=== PATIENT | female | born 1990 | race Caucasian/White ===

== ENCOUNTER 2016-05-13 11:41 | Emergency (ER) | payer BC, OTHER ==
[~2016-05-13] VITALS: Ht 160 cm; Wt 56.4 kg
[2016-05-13 11:46] VITALS: TEMP 36.5; Ht 160 cm; Wt 56.4 kg
[2016-05-13] MEDS ORDERED: ONDANSETRON INJ 2 MG/ML 2 ML VIAL IV STA (12:22)
[2016-05-13] MEDS ORDERED: SODIUM CHLORIDE 0.9% 1000ML 1,000 ML IV ONE ×2 (12:30→13:15)
[2016-05-13 12:32] LABS: HEMATOCRIT 40.8 % (37-47); MEAN CORPUSCULAR HEMOGLOBIN 27.2 pg (25-34); MEAN CORPUSCULAR HGB CONC 33.6 g/dl (32-36); MEAN PLATELET VOLUME 11.2 fL (7.4-10.4); PLATELET COUNT 219 K/uL (130-400); RED BLOOD COUNT 5.04 M/uL (4.2-5.4); WHITE BLOOD COUNT 7.99 K/uL (4.8-10.8)
[2016-05-13] MEDS ORDERED: ONDA4TAB46 PO (12:35)
[2016-05-13] MEDS ORDERED: LXT PO (12:36)
[2016-05-13] MEDS ORDERED: TRAM-10 PO (12:36)
[2016-05-13 12:39] LABS: CALCIUM 9.3 mg/dl (8.5-10.1); CREATININE 0.9 mg/dl (0.60-1.20); POTASSIUM 3.4 mmol/L (3.5-5.1)
[2016-05-13 12:42] LABS: ALB/GLOB RATIO 1.3 (0.9-2)
[2016-05-13] MEDS ORDERED: TRAMADOL HCL 50 MG TAB PO STA (12:43)
--- NOTE | 2016-05-13 12:43 | EMERGENCY ROOM VISIT NOTE ---
History First contact with patient: 11:58 Chief Complaint: VOMITING Stated Complaint: NON STOP VOMITING, STOMACH PAINS Nursing Triage Summary: Triage note: Pt reports nausea, vomiting since approx 0930 today. pt reports hx of crohns. History of Present Illness The patient is a 25 year old female who presents to the Emergency Room with complaints of intractable nausea. She did well overnight. This morning, at 9:30 she began having intractable emesis. She contents with cheese curd-like without blood. She tried taking her Zofran and Tramadol with morning at 10:30 but threw them up so decided to come to the ED for further evaluation. She is noted to have a diagnosis of Crohn's disease. Her diagnosis of Crohns was made in July 2015. She notes that her symptoms are primarily upper GI with vomiting. She has had endoscopy, but cannot recall the specific result. She notes disease was found in the ileum. She does not recall results of colonoscopy. She notes this has been an ongoing issue since she was 4 years old. She has chronic nausea and vomiting and has presented several visits to the ED for nausea and vomiting. She was usually treated supportively. At home, she normally takes Zofran every 4-6 hours daily. She also takes Tramadol for chronic LLQ pain. She note daily cannabis use. She was told by a carrot tier in [place] many years ago that marijuana would help with her symptoms. She states she smokes 1 gram per day. She states that when she can make it to the shower, it does seem to help her symptoms. She states it helps her with her LLQ pain related to her Crohns, even more than Tramadol.. She has been smoking for many years and also notes that her nausea preceded her starting smoking marijuana. She has been advised by her carrot tier to stop smoking, but she finds the pain relief too helpful. Review of Systems A 10 point review of systems was negative unless stated above. Past Medical/Surgical History Medical Problems: (1) Marijuana abuse (2) Nausea With Vomiting, Unspecified Surgical Problems: (1) No significant past surgical history Crohn's Disease Family History Cancer Social History Smoking Status: Never Smoker Alcohol Use: none Drug Use: marijuana (1 g per day) Marital Status: single Housing Status: lives with significant other Occupation Status: employed Current/Historical Medications Scheduled PRN Laxative (Laxative), Unknown Dose PO DAILY PRN for Constipation Ondansetron Hcl (Zofran), 4 MG PO DAILY PRN for Nausea Tramadol (Ultram), 50 MG PO DAILY PRN for Pain Allergies Coded Allergies: No Known Allergies (Unverified , 05/13/16) Physical Exam Vital Signs Date Time Temp Pulse Resp B/P Pulse Ox O2 Delivery O2 Flow Rate FiO2 05/13/16 14:51 79 16 104/64 100 Room Air 05/13/16 13:56 67 19 105/61 99 Room Air 05/13/16 13:00 69 14 99/57 98 Room Air 05/13/16 12:07 69 05/13/16 11:46 36.5 70 18 144/78 99 Room Air Physical Exam Constitutional: Vital signs as above were reviewed. Eyes: Pupils equal, round, and reactive to light. Extraocular muscles are intact. No proptosis. No photophobia. ENT: Mucous membranes are moist. Oropharynx is clear. No sinus tenderness. TMs are clear bilaterally. Cardiovascular: Heart with a regular rate and rhythm. Pulses are palpable and symmetric in all 4 extremities. No pedal edema appreciated. Respiratory: Lungs clear to auscultation bilaterally. No wheezes, rales, or rhonchi appreciated. No accessory muscle use. No retractions. No increased work of breathing. GI: Abdomen soft, nontender, nondistended. Normal active bowel sounds. No abdominal hernias appreciated. No rebound. No guarding. : No CVA tenderness appreciated. Musculoskeletal: No midline cervical or vertebral tenderness. No gross deformities. No bony tenderness. No calf swelling or tenderness. Integumentary: Warm, dry, no rashes appreciated. Neurological: Patient awake, alert, and oriented x 3. Cranial nerves two through 12 grossly intact. Motor 5 out of 5 strength bilateral upper and lower extremities. Lymph: No cervical lymphadenopathy appreciated. Medical Decision & Procedures Laboratory Results 05/13/16 12:00 05/13/16 12:00 Test 05/13/16 12:00 Red Blood Count 5.04 M/uL (4.2-5.4) Mean Corpuscular Volume 81.0 fL (80-100) Mean Corpuscular Hemoglobin 27.2 pg (25-34) Mean Corpuscular Hemoglobin Concent 33.6 g/dl (32-36) RDW Standard Deviation 40.7 fL (36.4-46.3) RDW Coefficient of Variation 13.7 % (11.5-14.5) Mean Platelet Volume 11.2 fL (7.4-10.4) Anion Gap 16.0 mmol/L (3-11) Est Creatinine Clear Calc Drug Dose 78.3 ml/min Estimated GFR () 102.3 Estimated GFR (Non- 88.2 BUN/Creatinine Ratio 11.0 (10-20) Calcium Level 9.3 mg/dl (8.5-10.1) Total Bilirubin 0.6 mg/dl (0.2-1) Aspartate Amino Transf (AST/SGOT) 16 U/L (15-37) Alanine Aminotransferase (ALT/SGPT) 17 U/L (12-78) Alkaline Phosphatase 53 U/L (45-117) Total Protein 8.3 gm/dl (6.4-8.2) Albumin 4.7 gm/dl (3.4-5.0) Globulin 3.6 gm/dl (2.5-4.0) Albumin/Globulin Ratio 1.3 (0.9-2) Medications Administered Medications (Trade) Dose Ordered Sig/Aubree Route Start Time Stop Time Status Last Admin Dose Admin Ondansetron HCl 4 mg 4 mg NOW STAT IV 05/13/16 12:22 05/13/16 12:27 DC 05/13/16 12:35 4 MG Sodium Chloride (Nss 1000ml) 1,000 ml @ 999 mls/hr Q1H1M ONCE IV 05/13/16 12:30 05/13/16 13:30 DC 05/13/16 12:35 999 MLS/HR Tramadol HCl 50 mg 50 mg NOW STAT PO 05/13/16 12:43 05/13/16 12:44 DC 05/13/16 13:01 50 MG Sodium Chloride (Nss 1000ml) 1,000 ml @ 999 mls/hr Q1H1M ONCE IV 05/13/16 13:15 05/13/16 14:15 DC 05/13/16 13:15 999 MLS/HR ED Course 12:00 - Patient seen and evaluated Orders for CBC, BMP, Zofran 4 mg IV and 1 LNSS 13:00 - Case precepted with Dr. Lucio Second 1 L NS ordered 13:30 - Labs reviewed; CBC WNL; BMP grossly normal 14:40 - Re-assessed by myself and Dr. Lucio Nausea resolved; patient tolerating PO fluids 14:50 - Patient discharged in stable condition. Patient has Zofran prescription already waiting at pharmacy. No meds given at discharge. Medical Decision This is a 25 year old female who presents with intractable nausea and vomiting. She has a background of Crohn's and notes that her symptoms have always been nausea/vomiting, since she was a child. A thorough history was obtained, physical examination performed and the EMR was reviewed. The case was reviewed multiple times over with Dr. Karel Lucio during the patient's ED visit. Based on history, it is unclear whether the etiology of her nausea is related to her Crohn's vs chronic overuse of marijuana. She does note 1 g daily use, so I do suspect cannabinoid hyperemesis syndrome as well. This has been brought up with her by her carrot tier. This is unfortunately complicated by the fact that marijuana helps her pain even more than Toradol. We treated with 2 L of NSS. She was treated with 1 dose of IV Zofran which resolved symptoms. She was tolerating PO well prior to discharge. At this point, she needs follow-up gastroenterology to determine next steps for therapy. She is currently not on any immunosuppressants and would benefit from a discussion of immunosuppressives that may help sherry her abdominal pain. She was discharged in stable condition and will make arrangements through her PCP to follow-up with her carrot tier. Impression Primary Impression: Vomiting Additional Impressions: Crohn disease Cannabinoid hyperemesis syndrome Departure Information Dispostion Home / Self-Care Condition GOOD Referrals Mary Ramos,DO (PCP) Patient Instructions My [facility] Additional Instructions You came to the ED for intractable nausea and vomiting. You did note to us this is unfortunately an ongoing issue related to your Crohn' s disease. We treated you with medicine for nausea and IV fluids. You were able to drink without feeling nauseated so we feel that you can safely be discharged. You did mention that you are looking for follow-up with a gastro-enterologist. [facility] and your primary provider Dr. Mary Ramos can help facilitate getting you see one that can follow along with you long-term. Seeing a GI specialist will allow to have a discussion on various treatment options to help control your symptoms long-term. You did note that you have a standing prescription for Zofran waiting for your at the pharmacy. Please take this as needed for nausea. Gradually advance your diet. Start with liquids and move progressively to more solid foods until you tolerate your usual diet. If your symptoms fail to improve, acutely worsen, please seek medical attention immediately by either calling your primary care provider or going to your nearest emergency department. Otherwise, please see your primary care provider in 3-5 days to ensure that your symptoms continue to improve. It was a pleasure to be involved in your care and we wish you all the best. Problem Qualifiers
[2016-05-13 14:51] VITALS: BP 104/64; PULSE 79; O2SAT 100
--- NOTE | 2016-05-13 14:52 | EMERGENCY ROOM VISIT NOTE ---
ED Visit Note First contact with patient: 11:58 Resident Physician Supervision Note: I was present with Dr. De Dios during the history and exam. I discussed the case with the resident and agree with the findings and plan as documented in the note. Any exceptions or clarifications are listed here: [None] Documented By: Karel Lucio
== END 2016-05-13 15:03 | disposition home or self-care (01) ==
LOC: C.EDB 11:42 → C.EDA 15:03
DX: R11.10 Vomiting, unspecified (principal); K50.90 Crohn's disease, unspecified, without complications; F12.10 Cannabis abuse, uncomplicated

== ENCOUNTER 2022-08-13 16:12 | Inpatient (IN) ==
[2022-08-13] MEDS ORDERED: SODIUM CHLORIDE 0.9% 500 ML IV ONE (16:24)
--- NOTE | 2022-08-13 16:25 | Emergency Department Note ---
Impression & Plan Spontaneous miscarriage ADMIT ED Provider Note HPI: The patient is a 31-year-old female with history of Crohn disease, presents emergency department with a chief complaint of left lower abdominal pain and vomiting. Patient states she is currently 14 weeks . States that her symptoms seem to worsen throughout the day today. Patient states that earlier today she had an episode where she felt as if she cannot control her urine. Patient also states that she noticed "drops" of bleeding from her vagina earlier today. Patient denies any chest pain or shortness of breath, on arrival here to the ED the patient is hemodynamically stable, she is saturating well on room air, she is in no acute distress on my initial assessment. States she does feel nausea and some left lower quadrant pain on arrival. Patient states she follows with [facility], states that she had an ultrasound done at 7 weeks that showed intrauterine . ROS: - Per HPI *Outpatient medications and allergy history reviewed. *Pertinent external medical records reviewed. PE: General: Alert HEENT: Normocephalic, trachea midline Eyes: Extraocular eye movement is intact, no scleral erythema Pulmonary: Clear to auscultation bilaterally, no wheezing Cardio: Regular rate and rhythm GI: Abdomen is soft to palpation : Mild suprapubic tenderness without any guarding or rigidity MSK: No evidence of trauma or malformation of the extremities, no edema Skin: No evidence of rash Neuro: Alert, no focal deficits Psychiatric: Cooperative trans router: (As interpreted by myself): - An order was placed for continuous cardiac monitoring - Patient was noted to be in sinus rhythm with a rate of 85 Interventions provided in ED: -IV morphine Differential Diagnosis: Ectopic , heterotopic , spontaneous miscarriage, ovarian cyst, ovarian torsion, amongst other potential pathologies. Medical Decision Making: The patient is a 31-year-old female, G1, P1, presents emergency department with a chief complaint of some lower abdominal cramping mostly to the left side. Patient states earlier today she had an episode of urinary incontinence as well. IV was established and lab work obtained, patient was maintained on cream dumper, ultrasound imaging of the pelvis was performed which unfortunately shows an apparent spontaneous miscarriage. Lab work shows leukocytosis of 14.4 which I suspect is reactive in nature, hemoglobin is stable, hCG quant level is 138,820. I did receive a call from the medical technician in regards to the finding on ultrasound of spontaneous miscarriage with fetus unfortunately lowering into the cervix and uterine canal. On my reassessment patient was informed of this finding, stated she was having some worsening pain and therefore was given IV morphine for pain. Shortly after this I did contact [facility], case was discussed with Dr. Kapoor. He did evaluate the patient at the bedside and decision was made to transfer the patient to L&D for further management. Patient was informed of all the above findings, she is in agreement to the above plan and she was transferred in stable condition. Consultants: [facility], Dr. Kapoor Disposition discussion held by myself with: Patient Diagnosis: 1. Spontaneous miscarriage 2. Lower abdominal/pelvic pain in the setting of Disposition: Admission to L&D Alvarez Agustin DO Emergency Medicine Past Med/Surg History Medical History (Updated 08/13/22 @ 19:58 by Alvarez Agustin DO) Crohn disease Marijuana abuse Family History Other No pertinent family history in first degree relatives Social History Smoking Status: Never smoker Hx Alcohol Use: No Hx Substance Use: No Preferred Language: Belarusian Communication Ability: Effective Vender Required: No Beliefs That Will Affect Care: None marital status: Current Living Situation: Spouse Current Living Situation Comment: Rick Other Information That Helps Us Care for You: Yes (Pt has dx of Crohns no current tx.) Feels Safe at Home: Yes Assistive Devices: Glasses Allergies Allergies Allergy/AdvReac Type Severity Reaction Status Date / Time No Known Allergies Allergy Verified 01/08/20 17:14 Home Meds Home Medications Medication Instructions Recorded Confirmed vitamins-iron fumarate 65 1 tab PO DAILY 08/13/22 08/13/22 mg iron-folic acid 1 mg tablet Results & Data (ED) Vital Signs Vital Signs - 24 hr 08/13/22 16:15 08/13/22 16:48 08/13/22 17:26 Temperature 36.5 C Temperature Source Temporal Artery Scan Pulse Rate 92 H 74 98 H Pulse Rate [Right Brachial] Pulse Rhythm Regular Pulse Rhythm [Right Brachial] Pulse Strength [Right Brachial] Respiratory Rate 20 19 Respiratory Effort / Characteristics Respiratory Depth Blood Pressure 114/77 Blood Pressure [Right Arm] Blood Pressure Mean 89 Blood Pressure Mean [Right Arm] Blood Pressure Position [Right Arm] Pulse Oximetry 99 99 Oxygen Delivery Method Room Air Room Air Sepsis Recent Fever Within 48 Hours No Sepsis New/Unexplained Change in Mental Status N/A Sepsis Action Taken by Nursing No Action Required 08/13/22 17:56 Temperature Temperature Source Pulse Rate Pulse Rate [Right Brachial] 80 Pulse Rhythm Pulse Rhythm [Right Brachial] Regular Pulse Strength [Right Brachial] Normal Respiratory Rate 19 Respiratory Effort / Characteristics Non-Labored Spontaneous Respiratory Depth Normal Blood Pressure Blood Pressure [Right Arm] 120/66 Blood Pressure Mean Blood Pressure Mean [Right Arm] 84 Blood Pressure Position [Right Arm] Lying Pulse Oximetry 99 Oxygen Delivery Method Room Air Sepsis Recent Fever Within 48 Hours Sepsis New/Unexplained Change in Mental Status Sepsis Action Taken by Nursing Laboratory Data 08/13/22 16:29 08/13/22 16:29 Lab Results 08/13/22 08/13/22 08/13/22 Range/Units 16:29 16:29 16:29 WBC 14.40 H (4.8-10.8) K/ul RBC 4.64 (4.20-5.40) M/uL Hgb 12.5 (12.0-16.0) g/dl Hct 37.3 (37.0-47.0) % MCV 80.4 (80.0-100.0) fL MCH 26.9 (25.0-34.0) pg MCHC 33.5 (32.0-36.0) g/dL RDW Std Deviation 40.3 (36.4-46.3) fL RDW Coeff of Stefan 13.8 (11.5-14.5) % Plt Count 194 (130-400) K/uL MPV 11.6 (9.4-12.4) fL Immature Gran % (Auto) 0.3 % Neut % (Auto) 81.5 % Lymph % (Auto) 12.5 % [place] % (Auto) 5.3 % Eos % (Auto) 0.2 % Baso % (Auto) 0.2 % Neut # (Auto) 11.73 H (1.40-6.50) K/uL Lymph # (Auto) 1.80 (1.2-3.4) K/uL [place] # (Auto) 0.76 H (0.11-0.59) K/uL Eos # (Auto) 0.03 (0-0.50) K/uL Baso # (Auto) 0.03 (0-0.2) K/uL Immature Gran # (Auto) 0.05 (0.01-0.20) K/uL PT (9.0-12.0) Seconds INR (0.9-1.1) Sodium 136 (136-145) mmol/L Potassium 3.3 L (3.5-5.1) mmol/L Chloride 103 (98-107) mmol/L Carbon Dioxide 22 (21-32) mmol/L Anion Gap 11 (3-11) BUN 5 L (6-23) mg/dl Creatinine 0.53 L (0.6-1.2) mg/dl Est Cr Clr Drug Dosing 134.9 ml/min Est GFR ( Amer) 145.6 ml/min Est GFR (Non-Af Amer) 125.6 ml/min BUN/Creatinine Ratio 9.4 L (10-20) Glucose 75 (70-99(Fasting)) mg/dl Calcium 9.1 (8.6-10.3) mg/dl Total Bilirubin 0.3 (0.2-1.0) mg/dl AST 16 (13-39) U/L ALT 14 (7-52) U/L Alkaline Phosphatase 69 (34-104) U/L Total Protein 7.5 (6.0-8.3) gm/dl Albumin 4.0 (3.4-5.0) gm/dl Globulin 3.5 (2.5-4.0) gm/dl Albumin/Globulin Ratio 1.1 (0.9-2) Lipase 7 L (11-82) U/L HCG, Qual Positive (Negative) HCG, Quant mIU/ml Blood Type Antibody Screen 08/13/22 08/13/22 08/13/22 Range/Units 16:29 16:37 17:47 WBC (4.8-10.8) K/ul RBC (4.20-5.40) M/uL Hgb (12.0-16.0) g/dl Hct (37.0-47.0) % MCV (80.0-100.0) fL MCH (25.0-34.0) pg MCHC (32.0-36.0) g/dL RDW Std Deviation (36.4-46.3) fL RDW Coeff of Stefan (11.5-14.5) % Plt Count (130-400) K/uL MPV (9.4-12.4) fL Immature Gran % (Auto) % Neut % (Auto) % Lymph % (Auto) % [place] % (Auto) % Eos % (Auto) % Baso % (Auto) % Neut # (Auto) (1.40-6.50) K/uL Lymph # (Auto) (1.2-3.4) K/uL [place] # (Auto) (0.11-0.59) K/uL Eos # (Auto) (0-0.50) K/uL Baso # (Auto) (0-0.2) K/uL Immature Gran # (Auto) (0.01-0.20) K/uL PT 10.1 (9.0-12.0) Seconds INR 0.9 (0.9-1.1) Sodium (136-145) mmol/L Potassium (3.5-5.1) mmol/L Chloride (98-107) mmol/L Carbon Dioxide (21-32) mmol/L Anion Gap (3-11) BUN (6-23) mg/dl Creatinine (0.6-1.2) mg/dl Est Cr Clr Drug Dosing ml/min Est GFR ( Amer) ml/min Est GFR (Non-Af Amer) ml/min BUN/Creatinine Ratio (10-20) Glucose (70-99(Fasting)) mg/dl Calcium (8.6-10.3) mg/dl Total Bilirubin (0.2-1.0) mg/dl AST (13-39) U/L ALT (7-52) U/L Alkaline Phosphatase (34-104) U/L Total Protein (6.0-8.3) gm/dl Albumin (3.4-5.0) gm/dl Globulin (2.5-4.0) gm/dl Albumin/Globulin Ratio (0.9-2) Lipase (11-82) U/L HCG, Qual (Negative) HCG, Quant 161758 mIU/ml Blood Type A Positive Antibody Screen NEGATIVE Administered Medications Discontinued Medications Sodium Chloride (Nss) 500 mls @ 999 mls/hr IV .Q31M ONE Stop: 08/13/22 16:54 Last Infusion: 08/13/22 17:56 Dose: 0 mls/hr Documented By: Admin: 08/13/22 16:43 Dose: 999 mls/hr Documented By: KACIE Morphine Sulfate (Morphine Sulfate 4 Mg/Ml 1 Ml Carp\\Vial) 4 mg IV NOW STA Stop: 08/13/22 17:26 Last Admin: 08/13/22 17:28 Dose: 4 mg Documented By: KACIE Imaging Data Radiologist's Impression: Obstetrics Ultrasound 08/13/22 16:23 US OB limited CLINICAL HISTORY: Vaginal bleeding, 14 weeks COMPARISON STUDY: None. FINDINGS: Transabdominal scanning of the pelvis was performed with sales representative groceries images submitted. There is a single intrauterine gestation demonstrating a heart rate of 178 BPM. age is approximately 14 weeks and 2 days based on the head circumference. There is oligohydramnios. No evidence for subchorionic hematoma. The lower uterine segment/cervix is not well visualized due to the positioning and oligohydramnios. However, the fetus is actively lowering within the uterine cavity consistent with a spontaneous in progress. IMPRESSION: There is a 14 week and 2 day intrauterine gestation with a heart rate of 178 BPM. There is oligohydramnios with active lowering of the fetus into the lower uterine canal/cervix during scanning. Therefore, this is highly suspicious for a spontaneous in progress. This was discussed with Dr. Agustin at 5:38 PM on 08/13/2022. ACT 112: Negative or not required by law. Electronically signed by: Jace Arnold M.D. 08/13/2022 5:38 PM Discharge Plan Visit Data Chief Complaint: Abdominal Pain Stated Complaint: ABDOMINAL PAIN, CRAMPING - 14 WEEKS ED Provider: Alvarez Agustin Discharge Problem: Spontaneous miscarriage Patient Disposition: Admitted As Inpatient Discharge Instructions Interventions: ED Discharge Assessment Last Done: 08/13/22 19:05
[2022-08-13 16:55] LABS: Basophils # (auto) 0.03 K/uL (0-0.2); Basophils % (auto) 0.2 %; Eosinophils # (auto) 0.03 K/uL (0-0.50); Eosinophils % (auto) 0.2 %; Hematocrit (blood only) 37.3 % (37.0-47.0); Hemoglobin 12.5 g/dl (12.0-16.0); Immature Granulocytes # (auto) 0.05 K/uL (0.01-0.20); Immature Granulocytes % (auto) 0.3 %; Lymphocytes % (auto) 12.5 %; Mean Corpuscular Hemoglobin 26.9 pg (25.0-34.0); Mean Corpuscular Hgb Conc 33.5 g/dL (32.0-36.0); Mean Corpuscular Volume 80.4 fL (80.0-100.0); Mean Platelet Volume 11.6 fL (9.4-12.4); Monocytes # (auto) 0.76 K/uL (0.11-0.59); Monocytes % (auto) 5.3 %; Neutrophils # (auto) 11.73 K/uL (1.40-6.50); Neutrophils % (auto) 81.5 %; Platelet Count 194 K/uL (130-400); RDW Coefficient of Variation 13.8 % (11.5-14.5); RDW Standard Deviation 40.3 fL (36.4-46.3); Red Blood Count 4.64 M/uL (4.20-5.40)
[2022-08-13 17:11] LABS: Pregnancy Test, Serum Positive (Negative)
[2022-08-13 17:14] LABS: Albumin Globulin Ratio 1.1 (0.9-2); BUN Creatinine Ratio 9.4 (10-20); Bilirubin,Total 0.3 mg/dl (0.2-1.0); Calcium 9.1 mg/dl (8.6-10.3); Creatinine Clr Calc Pharmacy 134.9 ml/min; Est GFR (African American) 145.6 ml/min; Est GFR (Non-African American) 125.6 ml/min; Globulin 3.5 gm/dl (2.5-4.0); Potassium 3.3 mmol/L (3.5-5.1); Total Protein 7.5 gm/dl (6.0-8.3)
[2022-08-13] MEDS ORDERED: MoRPHine SULFATE 4 MG/ML 1 ML CARP\\VIAL IV STA (17:25)
--- NOTE | 2022-08-13 17:40 | Ultrasound Report ---
US OB limited CLINICAL HISTORY: Vaginal bleeding, 14 weeks COMPARISON STUDY: None. FINDINGS: Transabdominal scanning of the pelvis was performed with environmental marketing representative images submitted. T here is a single intrauterine gestation demonstrating a heart rate of 178 BPM. age is zenia roximately 14 weeks and 2 days based on the head circumference. There is oligohydramnios. No evidence for subchorionic hematoma. The lower uterine segment/cervix is not well visualized due to the positioning and oligohydramnios. However, the fetus is actively lowering within the uterine cavity co nsistent with a spontaneous in progress. IMPRESSION: There is a 14 week and 2 day intrauterine gestation with a heart rate of 178 BPM. There is oligohydramnios with active lowering of the fetus into the lower uterine canal/cervix during scanning. Therefore, this is highly suspicious for a spontaneous in progress. This was disc ussed with Dr. Agustin at 5:38 PM on 08/13/2022. ACT 112: Negative or not required by law. Electronically signed by: Jace Arnold M.D. 08/13/2022 5:38 PM
[2022-08-13] MEDS ORDERED: LIDOCAINE 1% LOCAL 20 ML VIAL INFIL PRN (18:37)
[2022-08-13] MEDS: LACTATED RINGER'S 1,000 ML IV PRN (19:10)
[2022-08-13 19:27] LABS: INR 0.9 (0.9-1.1); Prothrombin Time 10.1 Seconds (9.0-12.0)
[2022-08-13] MEDS ORDERED: ONDANSETRON INJ 2 MG/ML 2 ML VIAL IV PRN (19:35)
--- NOTE | 2022-08-13 19:35 | Progress Note ---
Date of Service August 13, 2022 Assessment & Plan (1) Spontaneous at 8 to 28 weeks gestation: Plan: 31yopresents to ER with SROM at 15;00 hrs pt c/o abdominal and pelvic pain' Sono done shows spontaneous - fetus in cervical canal reviewed PMH, PSH, med hx , Ob Hx. Fam hx , socx and allergies Pt admitted to L&D for delivery of fetus Admission and Anticipated Discharge Date Admission Date: August 13, 2022 Results & Data Vital Signs (Past 12 Hours) Vital Signs Temp Pulse Pulse Resp BP BP Pulse Ox 08/13/22 17:56 80 19 120/66 99 08/13/22 17:26 98 H 08/13/22 16:48 74 19 99 08/13/22 16:15 36.5 C 92 H 20 114/77 99 O2 Del Method 08/13/22 17:56 Room Air 08/13/22 17:26 08/13/22 16:48 Room Air 08/13/22 16:15 Room Air
[2022-08-13] MEDS ORDERED: BUTORPHANOL TARTRATE 1 MG/ML VIAL IM ONE (19:36)
[2022-08-13] MEDS ORDERED: SODIUM CHLORIDE 0.9% 250 ML IV PRN (19:36)
[2022-08-13] MEDS ORDERED: BUTORPHANOL TARTRATE 1 MG/ML VIAL IV ONE (19:38)
[2022-08-13] MEDS ORDERED: miSOPROStoL 200 MCG TAB PO STA (19:57)
[2022-08-13] MEDS ORDERED: BUTORPHANOL TARTRATE 1 MG/ML VIAL IV PRN (22:01)
[2022-08-13] MEDS ORDERED: MoRPHine SULFATE 4 MG/ML 1 ML CARP\\VIAL IV PRN (22:10)
[2022-08-14] MEDS ORDERED: miSOPROStoL 200 MCG TAB ONE (01:06)
[2022-08-14] MEDS ORDERED: BENZOCAINE 20% AER SPR 82.5 GM CAN EXT PRN (01:23)
[2022-08-14] MEDS ORDERED: HYDROCORTISONE ACETATE 25 MG SUPP PR PRN (01:23)
[2022-08-14] MEDS ORDERED: DIPHTHERIA/TETANUS/PERTUSSIS 0.5mL SYR/VIAL (Age 7+yrs) IM ONE (01:23)
[2022-08-14] MEDS ORDERED: ACETAMINOPHEN 325 MG TAB PO PRN (01:23)
[2022-08-14] MEDS ORDERED: miSOPROStoL 200 MCG TAB PO ONE (01:23)
[2022-08-14] MEDS: oxyCODONE/ACETAMINOPHEN 5mg/325mg TAB PO PRN ×3 (01:38→11:38)
[2022-08-14] MEDS: LACTATED RINGER'S 1,000 ML IV PRN (03:26)
[2022-08-14 04:43] LABS: Appearance Urine Cloudy (Clear); Bacteria Urine Automated Negative (Negative); Bilirubin Urine Negative (Negative); Blood Urine 3+ (Negative); Color Urine Red; Glucose Urine UA Negative (Negative); Ketones Urine 1+ (Negative); Leukocyte Esterase Urine 1+ (Negative); Nitrite Urine Negative (Negative); Protein Urine 2+ (Negative); RBC Urine Automated >30 /hpf (0-4); Specific Gravity Urine 1.005 (1.000-1.030); Urobilinogen Urine Negative (Negative)
[2022-08-14] MEDS ORDERED: PRENATAL VITAMIN 1 TAB PO SCH (08:00)
--- NOTE | 2022-08-14 08:00 | Delivery Summary ---
This is a 31-year-old G1, P0, presented to the Emergency Room with 14 weeks, spontaneous . T he patient delivered the nonviable fetus. Cord was clamped. Patient was given Cytotec. She had not delivered the placenta spontaneously. Both specimen will be sent to pathology. There was good hemos tasis. Estimated blood loss was 300 mL. Patient was stable to recovery. All products, instruments w ere removed from the vagina. There was no laceration or tears in the vagina. The patient is stable in the recovery. Job ID: [id number]
--- NOTE | 2022-08-14 09:14 | Ultrasound Report ---
ULTRASOUND OF THE PELVIS CLINICAL HISTORY: Vaginal bleeding. Missed . COMPARISON STUDY: No priors. TECHNIQUE: Real-time, grayscale, and color flow sonography of the pelvis is performed transabdominall y. Images are reviewed in the transverse and longitudinal planes. FINDINGS: Uterus: The postgravid uterus is mildly enlarged and heterogeneous, measuring 11.3 x 6.1 x 6.6 cm. Endometrium: The endometrium is distended and filled with complex fluid/debris. This measures up to 2 .5 cm in diameter comment shows foci of internal flow on color imaging. Ovaries: The ovaries were not visualized due to overlying bowel. Pelvis: There is no free fluid in the cul-de-sac. No concerning adnexal lesion is seen. IMPRESSION: 1. The postgravid uterus is enlarged and heterogeneous. 2. The endometrium is distended and filled with complex fluid/debris. This shows foci of internal stefan w on color imaging and retained products of conception is the diagnosis of exclusion. 3. The ovaries are visualized. No adnexal abnormality is seen. ACT 112: Negative or not required by law. Electronically signed by: Clement Roque M.D. 08/14/2022 9:11 AM
[2022-08-14 10:21] LABS: Hematocrit (blood only) 30.5 % (37.0-47.0); Hemoglobin 10.3 g/dl (12.0-16.0); Mean Corpuscular Hgb Conc 33.8 g/dL (32.0-36.0); Mean Corpuscular Volume 80.1 fL (80.0-100.0); Mean Platelet Volume 11.6 fL (9.4-12.4); Platelet Count 176 K/uL (130-400); RDW Coefficient of Variation 13.8 % (11.5-14.5); RDW Standard Deviation 40.5 fL (36.4-46.3); Red Blood Count 3.81 M/uL (4.20-5.40); White Blood Count 14.58 K/ul (4.8-10.8)
[2022-08-14] MEDS ORDERED: miSOPROStoL 200 MCG TAB PO STA (10:45)
--- NOTE | 2022-08-14 10:53 | Obstetrical Progress Note ---
Date of Service August 14, 2022 Assessment & Plan (1) Spontaneous at 8 to 28 weeks gestation: Discussed either using Cytotec for possible retained tissue or to bring the patient to the OR today for D&E. She does not want any surgery. I have informed her that we will give her another dose of Cytotec before she leaves and f/u in office either tomorrow or Sunday for repeat ultrasound. She is informend that she will need to call if any heavy bleeding. (2) Cannabinoid hyperemesis syndrome: Subjective Ambulation: ambulating normally Voiding: no voiding problems Passing Gas:: Yes Diet Tolerance:: regular diet Lochia:: Small Current Pain Level(1-10): 0 minimal bleeding Physical Exam Constitutional WD/WN, vitals as above Gastrointestinal (Abdomen) normal bowel sounds, soft, nontender, no hepatosplenomegaly Musculoskeletal Extremities: extremities normal to inspection Skin no rashes, warm and dry Neurologic patellar DTR's 2+ bilat, sensation intact Psychiatric A+Ox3, euthymic affect Results & Data Vital Signs (Past 12 Hours) Vital Signs Temp Pulse Resp BP 08/14/22 07:28 36.8 C 20 08/14/22 07:26 73 104/62 08/14/22 03:27 18 08/14/22 03:27 36.9 C 18 08/14/22 03:28 62 95/52 L 08/13/22 23:50 37.2 C 77 16 111/59 L Laboratory Results Laboratory Results - last 72 hr 08/13/22 08/13/22 08/13/22 16:29 16:29 16:29 WBC 14.40 H RBC 4.64 Hgb 12.5 Hct 37.3 MCV 80.4 MCH 26.9 MCHC 33.5 RDW Std Deviation 40.3 RDW Coeff of Stefan 13.8 Plt Count 194 MPV 11.6 Immature Gran % (Auto) 0.3 Neut % (Auto) 81.5 Lymph % (Auto) 12.5 Luce % (Auto) 5.3 Eos % (Auto) 0.2 Baso % (Auto) 0.2 Neut # (Auto) 11.73 H Lymph # (Auto) 1.80 Luce # (Auto) 0.76 H Eos # (Auto) 0.03 Baso # (Auto) 0.03 Immature Gran # (Auto) 0.05 PT INR Sodium 136 Potassium 3.3 L Chloride 103 Carbon Dioxide 22 Anion Gap 11 BUN 5 L Creatinine 0.53 L Est Cr Clr Drug Dosing 134.9 Est GFR ( Amer) 145.6 Est GFR (Non-Af Amer) 125.6 BUN/Creatinine Ratio 9.4 L Glucose 75 Calcium 9.1 Total Bilirubin 0.3 AST 16 ALT 14 Alkaline Phosphatase 69 Total Protein 7.5 Albumin 4.0 Globulin 3.5 Albumin/Globulin Ratio 1.1 Lipase 7 L TSH HCG, Qual Positive HCG, Quant Urine Color Urine Appearance Urine pH Ur Specific [place] Urine Protein Urine Glucose (UA) Urine Ketones Urine Blood Urine Nitrite Urine Bilirubin Urine Urobilinogen Ur Leukocyte Esterase Urine WBC (Auto) Urine RBC (Auto) U Hyaline Cast (Auto) U Epithel Cells (Auto) Urine Bacteria (Auto) SARS-CoV-2, RNA, NAAT Blood Type Blood Type Recheck Antibody Screen 08/13/22 08/13/22 08/13/22 16:29 16:37 17:47 WBC RBC Hgb Hct MCV MCH MCHC RDW Std Deviation RDW Coeff of Stefan Plt Count MPV Immature Gran % (Auto) Neut % (Auto) Lymph % (Auto) Luce % (Auto) Eos % (Auto) Baso % (Auto) Neut # (Auto) Lymph # (Auto) Luce # (Auto) Eos # (Auto) Baso # (Auto) Immature Gran # (Auto) PT 10.1 INR 0.9 Sodium Potassium Chloride Carbon Dioxide Anion Gap BUN Creatinine Est Cr Clr Drug Dosing Est GFR ( Amer) Est GFR (Non-Af Amer) BUN/Creatinine Ratio Glucose Calcium Total Bilirubin AST ALT Alkaline Phosphatase Total Protein Albumin Globulin Albumin/Globulin Ratio Lipase TSH HCG, Qual HCG, Quant [id number] Urine Color Urine Appearance Urine pH Ur Specific [place] Urine Protein Urine Glucose (UA) Urine Ketones Urine Blood Urine Nitrite Urine Bilirubin Urine Urobilinogen Ur Leukocyte Esterase Urine WBC (Auto) Urine RBC (Auto) U Hyaline Cast (Auto) U Epithel Cells (Auto) Urine Bacteria (Auto) SARS-CoV-2, RNA, NAAT Blood Type A Positive Blood Type Recheck Antibody Screen NEGATIVE 08/13/22 08/13/22 08/14/22 19:19 19:19 03:35 WBC RBC Hgb Hct MCV MCH MCHC RDW Std Deviation RDW Coeff of Stefan Plt Count MPV Immature Gran % (Auto) Neut % (Auto) Lymph % (Auto) Luce % (Auto) Eos % (Auto) Baso % (Auto) Neut # (Auto) Lymph # (Auto) Luce # (Auto) Eos # (Auto) Baso # (Auto) Immature Gran # (Auto) PT INR Sodium Potassium Chloride Carbon Dioxide Anion Gap BUN Creatinine Est Cr Clr Drug Dosing Est GFR ( Amer) Est GFR (Non-Af Amer) BUN/Creatinine Ratio Glucose Calcium Total Bilirubin AST ALT Alkaline Phosphatase Total Protein Albumin Globulin Albumin/Globulin Ratio Lipase TSH 2.054 HCG, Qual HCG, Quant Urine Color Red Urine Appearance Cloudy A Urine pH 5.0 Ur Specific [place] 1.005 Urine Protein 2+ H Urine Glucose (UA) Negative Urine Ketones 1+ H Urine Blood 3+ H Urine Nitrite Negative Urine Bilirubin Negative Urine Urobilinogen Negative Ur Leukocyte Esterase 1+ H Urine WBC (Auto) 5-10 H Urine RBC (Auto) >30 H U Hyaline Cast (Auto) 1-5 U Epithel Cells (Auto) 10-20 H Urine Bacteria (Auto) Negative SARS-CoV-2, RNA, NAAT Blood Type Blood Type Recheck A Positive Antibody Screen 08/14/22 08/14/22 05:55 10:06 WBC 14.58 H RBC 3.81 L Hgb 10.3 L Hct 30.5 L MCV 80.1 MCH 27.0 MCHC 33.8 RDW Std Deviation 40.5 RDW Coeff of Stefan 13.8 Plt Count 176 MPV 11.6 Immature Gran % (Auto) Neut % (Auto) Lymph % (Auto) Luce % (Auto) Eos % (Auto) Baso % (Auto) Neut # (Auto) Lymph # (Auto) Luce # (Auto) Eos # (Auto) Baso # (Auto) Immature Gran # (Auto) PT INR Sodium Potassium Chloride Carbon Dioxide Anion Gap BUN Creatinine Est Cr Clr Drug Dosing Est GFR ( Amer) Est GFR (Non-Af Amer) BUN/Creatinine Ratio Glucose Calcium Total Bilirubin AST ALT Alkaline Phosphatase Total Protein Albumin Globulin Albumin/Globulin Ratio Lipase TSH HCG, Qual HCG, Quant Urine Color Urine Appearance Urine pH Ur Specific [place] Urine Protein Urine Glucose (UA) Urine Ketones Urine Blood Urine Nitrite Urine Bilirubin Urine Urobilinogen Ur Leukocyte Esterase Urine WBC (Auto) Urine RBC (Auto) U Hyaline Cast (Auto) U Epithel Cells (Auto) Urine Bacteria (Auto) SARS-CoV-2, RNA, NAAT NEGATIVE Blood Type Blood Type Recheck Antibody Screen Diagnostic Findings ultrasound with clot vs. retained placental fragment
[2022-08-14 14:35] LABS: Estimated Average Glucose 103 mg/dl; Hemoglobin A1C 5.2 % (4.5-5.6)
[2022-08-18 11:17] LABS: 7-Aminoclonazepam DNR ng/mL (<25); Alpha-Hydroxyalprazolam DNR ng/mL (<25); Alphahydroxymidazolam DNR ng/mL (<50); Alphahydroxytriazolam DNR ng/mL (<50); Amobarbital DNR ng/mL (<100); Amphetamines, Ur NEGATIVE ng/mL (<500); Amphetemines Ur GC/MS DNR ng/mL (<250); Barbiturates, Urine NEGATIVE ng/mL (<300); Benzodiazepines,Ur NEGATIVE ng/mL (<100); Butalbital DNR ng/mL (<100); Cocaine, Urine NEGATIVE ng/mL (<150); Cocaine,Ur GC/MS DNR ng/mL (<100); Codeine NEGATIVE ng/mL (<50); Confirmatory Facility DNR; EDDP DNR ng/mL (<100); Hydrocodone NEGATIVE ng/mL (<50); Hydromorphone NEGATIVE ng/mL (<50); Hydroxyethylflurazepam DNR ng/mL (<50); Lorazepam DNR ng/mL (<50); Methadone, Ur GC/MS NEGATIVE ng/mL (<100); Methadone, Urine DNR ng/mL (<100); Methamphetamine DNR ng/mL (<250); Morphine 2100 ng/mL (<50); Norhydrocodone NEGATIVE ng/mL (<50); Noroxycodone 138 ng/mL (<50); Opiates, Urine POSITIVE ng/mL (<100); Oxycodone,Ur Screen POSITIVE ng/mL (<100); Pentobarbital DNR ng/mL (<100); Phencyclidine, Ur NEGATIVE ng/mL (<25); Phencyclidine,Ur GC/MS DNR ng/mL (<25); Secobarbital DNR ng/mL (<100); THC20, Qual, Urine NEGATIVE ng/mL (<20); Temazepam DNR ng/mL (<50); Tetrahydrocannabinol DNR ng/mL (<5)
== END 2022-08-14 11:50 | disposition home or self-care (01) | DRG 807 ==
LOC: ED 16:12 → 4S1 18:35

== ENCOUNTER 2023-12-01 09:46 | Inpatient (IN) ==
--- OUTSIDE RECORDS SUMMARY | 2023-12-01 09:52 | External Medical Summary | Summary of Care ---
Author Name Unknown Organization [facility] Address [address] [facility] [place] [address] Phone [phone] Care Team Providers Care Aviation Medicine Specialist Name Role Phone Mary Ramos DO Primary Care Provider Reason for Visit * Reason Comments [facility] Encounter Details Date Type Department Care Team (Late st Contact Info) Description 10/12/2023 8:15 AM EDT Office Visit Gynecology/Obstetri meredith Arnett [address] [facility] [place] [address] BackAbigail smith CRNP [address] [place] [place] [address] Nurse Melquiades [facility] Jennyfer [address] [facility] [place] [address] Encounter for supervision of other normal , unspecified trimester*; Uterine synechiae; Maternal Crohn's disease affecting in third trimester (HCC) Allergies No known active allergiesdocumented as of this encounter (statuses as of 10/12/2023) Medications Medication Sig Dispensed Refills Start Date End Date Status 28-0.8 MG Oral Tablet Take by mouth. Active Breast PumpIndications:Encou nter for supervision of other normal , unspecified trimester For lactating mother to breastfeed. 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 F/u 2 weeks ASCUS with positive high risk HPV cervical 12/06 Overview: Normal colposcopy, repeat pap 2023 Health counseling 06/07/2022 Overview: Problem Action Taken Date entered Entered by Date resolved Nutrition Due date letter given 06/07/2022 Sophie Cazares RN 06/07/2022 H/o medical marijuana Quit with positive test 06/07/2022 Sophie Cazares RN 06/07/2022 Problem Action Taken Date entered Entered by Date resolved Current needs or questions Patient denies having any current needs or questions 07/07/2022 Sophie Cazares RN 07/07/2022 Problem Action Taken Date entered Entered by Date resolved 2nd trimester education Education given 08/07/2022 Susan Landers RN 08/07/2022 Problem Action Taken Date entered Entered by Date resolved Depression/ anxiety Denies any current symptoms 04/19/2023 Sophie Cazares RN 04/19/2023 nutrition Due date letter given for WIC 04/19/2023 Sophie Cazares RN 04/19/2023 Problem Action Taken Date entered Entered by Date resolved Current needs or questions Patient denies having any current needs or questions 05/18/2023 Susan Landers, JOZEF 05/18/2023 Problem Action Taken Date entered Entered by Date resolved Current needs or questions Patient denies having any current needs or questions 06/15/2023 Sophie Cazares RN 06/15/2023 Problem Action Taken Date entered Entered by Date resolved Current needs or questions Patient denies having any current needs or questions 08/21/2023 Susan Landers RN 08/21/2023 Problem Action Taken Date entered Entered by Date resolved Current needs or questions Patient denies having any current needs or questions 09/14/2023 Susan Landers JOZEF 09/14/2023 Problem Action Taken Date entered Entered by Date resolved Current needs or questions Patient denies having any current needs or questions 09/25/2023 Sophie Cazares RN 09/25/2023 Medical marijuana use 05/22/2019 Crohn's disease of small intestine with complica tion 04/21/2019 Pelvic pain in female 10/22/2017 Moderate episode of recurrent major depressive d isorder 10/22/2017 Anxiety 10/22/2017 Crohn's colitis 01/25/2016 Headache Overview: ICD-10 update of inactive term Estimated Date of Delivery Comme nts Yes 12/02/2023 Based on last me nstrual period of 02/25/2023 documented as of this encounter (statuses as of 10/12/2023) Resolved Problems Problem Noted Date Diagnosed Date Resolved Date Supervision of normal first 08/07/2022 08/16/2022 Maternal Crohn's disease affecting 08/16/2022 Atypical squamous cell gtz es of undetermined significance (ASCUS) on cervical cytology with positive high risk human papilloma virus (HPV) 06/07/2022 12/06/2022 Overview: ASCUS/+HPV Counseled on increased concern for cervical dysplasia, need to r/o malignancy Recommended colpo lorenza. Pt declined at NOB. Will discuss with FOB and notify office if she decides to schedule. Acute tonsillitis 12/23/2011 02/06/2017 IBS (irritable bowel syndrome) 07/03/2011 07/25/2011 documented as of this encounter (statuses as of 10/12/2023) Immunizations Name Administration Dates Next Due HPV Vaccine, 4-Valent 04/28/2009,12/24/2008,07/0 05/2008 TDAP (age 10 and older)(Boostrix) 09/14/2023,09/2019 TDAP, Age 7 and older, IM (Adacel) 08/14/2008 documented as of this encounter Social History Tobacco Use Types Packs/Day Years Used Date Smoking Tobacco: Never Smokeless Tobacco: Never Alcohol Use Standard Drinks/Week Comments No 0 (1 standard drink = 0.6 oz pur e alcohol) Hunger Vital Sign Answer Date Recorded Within the past 12 months, y ou worried that your food would run out before you got the money to buy more. Never true 07/20/19 24 Within the past 12 months, t he food you bought just didn't last and you didn't have money to get more. Never true 07/20/2023 [place] Depression Scale Answer Date Recorded [place] Depression Scale Total 0 09/14/2023 The thought of harming myself has occurred to me . Never 09/14/2023 Childcare Answer Date Recorded Do you feel overwhelmed with taking care of a child, family member or friend? No 07/20/2023 Does your family need help f inding childcare? (Household - for ages 0-17 years) Not on file 07/20/2023 Clothing Answer Date Recorded Have you been unable to get clothing when it was really needed? No 07/20/2023 Is your family able to get c lothes or diapers when needed? (Household - for ages 0-17 years) Not on file 07/20/2023 Personal Safety Answer Date Recorded Do you feel unsafe or have concerns for your saf ety? No 07/20/2023 Do you have concerns for you r family's safety? (Household - for ages 0-17 years) Not on file 07/20/2023 Utilities Answer Date Recorded Do you have trouble paying y our heating, water, or electric bill? No 07/20/2023 Is your family able to pay t he heat, water, or electric bill? (Household - for ages 0-17 years) Not on file 07/20/2023 Does your family have access to good internet? (Household - for ages 0-17 years) Not on file 07/20/2023 Employment Status Answer Date Recorded Are you unemployed or without regular income? No 07/20/2023 Does the household have a re gular source of income? (Household - for ages 0-17 years) Not on file 07/20/2023 Social Connections Answer Date Recorded How often do you feel lonely or isolated from th ose around you? Never 07/20/2023 Financial Resource Strain Answer Date R ecorded Do you have any trouble payi ng for your medications, or do you think you might in the future? No 07/20/2023 Does your family have troubl e paying for medicine? (Household - for ages 0-17 years) Not on file 07/20/2023 Transportation Needs Answer Date Record ed READ ONLY Do you have troubl e getting a ride to medical visits or work? Never True 07/20/2023 Does your family have a hard time getting a ride to doctors visits? (Household - for ages 0-17 years) Not on file 07/20/2023 Has lack of transportation k ept you from medical appointments, meetings, work, or from getting things needed for daily living? Check all that apply. (Adult - for ages 18 years and over) Not on file 07/20/2023 Do you (or your family) have trouble finding or paying for a ride (transportation)? (Household - for ages 0-17 years) Not on file 07/20/2023 Housing Stability Answer Date Recorded Do you currently live in a s helter or have no steady place to sleep at night? No 07/20/2023 READ ONLY Do you think you a re at risk of becoming homeless? No 07/20/2023 Does your family worry about paying for your home or becoming homeless? (Household - for ages 0-17 years) Not on file 0 07/20/2023 Are you homeless or worried that you might be in the future? (Adult - for ages 18 years and over) Not on file Are you (or your family) betsey eless or worried that you might be in the future? (Household - for ages 0-17 years) Not on file Food Insecurity Answer Date Recorded Do you need food for this week? Yes 07/20/2023 Are you able to get enough f ood for your family? (Household - for ages 0-17 years) Not on file 07/20/2023 Does your family need food t his week? (Household - for ages 0-17 years) Not on file 07/20/2023 Do you always have enough fo od for your family? (Household - for ages 0-17 years) Not on file 07/20/2023 Estimated Date of Delivery Comme nts Yes 12/02/2023 Based on last me nstrual period of 02/25/2023 Sex and Gender Information Value Date Recorded Sex Assigned at Female 06/07/2022 2:57 PM EST Gender Identity Female 06/07/2022 2:57 PM EST Sexual Orientation Straight 06/07/2022 2: 57 PM EST Job Start Date Occupation Industry Not on file Not on file Not on file documented as of this encounter Last Filed Vital Signs Vital Sign Reading Time Taken Comments Blood Pressure 108/62 10/12/2023 8:13 AM EDT Pulse - - Temperature - - Respiratory Rate - - Oxygen Saturation - - Inhaled Oxygen Concentration - - Weight 76.7 kg (169 lb) 10/12/2023 8:13 AM EDT Height - - Body Mass Index 29.94 09/14/2023 8:42 AM EDT documented in this encounter Progress Notes * Sheila Murguia MED ASSIST - 10/12/2023 8:13 AM EDT 32w5d Denies vaginal bleeding/rom + movements No new concerns * Abigail Jung CRNP - 10/12/2023 8:12 AM EDT 32w5d Doing well, baby is active. Denies ctx, leaking, bleeding. Discussed peds and childbirth classes. Scheduled for a growth scan in 2 weeks. Call sooner prn. ADA Cortez documented in this encounter Plan of Treatment Upcoming Encounters Date Type Department Care Team (Late st Contact Info) Description 10/26/2023 2:45 PM EDT Imaging Radiology [facility] [address] [facility] [address] [facility] [place] [address] 10/26/2023 3:30 PM EDT Office Visit Gynecology/Obstetrics [facility] [address] [facility] [place] [address] Violette Liao PA-C [address] [place] [address] [place] [id number] Ar[place], Nurse [facility] [address] [place] [id number] 01/22/2024 11:40 AM EDT Office Visit Gastroenterology, [facility] [place] [address] [place] [address] Jessica Sexton MD [address] [place] [address] Health Maintenance Due Date Last Done Comments Hepatitis B (1 of 3 - 19+ 3-dose series) 2008 Depression Monitoring 01/12/2018 01/12/2017 COVID-19 Vaccine (2022- season) 2022 Influenza Vaccine (FLU shot) (Season Ended) 2023 Pap Smear 12/01/2025 12/01/2022, 12/16, 10/22/2017, Additional history exists Cervical Cancer Screening 12/02/2027 HPV/Co-Test 12/02/2027 12/01/2022 DTaP,Tdap,and Td Vaccines (4 - Td or Tdap) 09/13/2033 09/14/2023, 04/21/2019, 08/14/2008 GARDASIL-HPV IMMUNIZATION SERIES Completed 04/28/2009, 12/24/2008, 10/15/2008 MENINGOCOCCAL (MENACTRA/MENVEO) Aged Out No longer eligible based on patient's age to complete this topic Pneumococcal Vaccine: Pediatrics (0 to 5 Years) and At-Risk Patients (6 to 64 Years) Aged Out No longer eligible based on patient's age to complete this topic documented as of this encounter Medical Devices Not on filedocumented as of this encounter Visit Diagnoses Diagnosis Encounter for supervision of other normal , unspecified trimester- Primary Uterine synechiae Intrauterine synechiae Maternal Crohn's disease affecting in third trimester (HCC) documented in this encounter Care Teams Aviation Medicine Specialist Relationship Specialty Start Date End Date Mary Ramos DO [address] [place] [address] PCP - General Family Medicine 09/22/16 documented as of this encounter
--- OUTSIDE RECORDS SUMMARY | 2023-12-01 09:52 | External Medical Summary ---
Author Name Unknown Address Unknown Organization K01:[facility] - [facility] [address] [place] [address] Laboratory Report Ordering Provider Test Date Status LOLIS STEPHENSON 11/09/2023 14:27:05 Final Observation Date Value Abnormality Reference (Units ) Status Streptococcus agalactiae DNA [Presence] in Specimen by SCOTT with probe detection 11/09/2023 14:27:05 Positive Abnormal Negative Final Group B Streptococcus detect ed by culture-enhanced PCR (amplified probe). GBS GBSCT - [facility] 11/09/2023 14:27:05 15.3 Final GBS SPCCT - [facility] 11/09/2023 14:27:05 0.0 Final Performing Location [facility] - [address] [place] [address]
--- OUTSIDE RECORDS SUMMARY | 2023-12-01 09:52 | External Medical Summary | Summary of Care ---
Author Name Unknown Organization [facility] Address [address] [facility] [place] [address] Phone [phone] Care Team Providers Care Shoe Repairer Helper Name Role Phone Mary Ramos DO Primary Care Provider Reason for Visit * Reason Comments Return Visit Encounter Details Date Type Department Care Team (Late st Contact Info) Description 09/14/2023 8:45 AM EDT Office Visit Gynecology/Obstetri meredith Arnett [address] [facility] [place] [address] Sharon Hearn PA-C [address] [place] [address] Nurse Melquiades [facility] Return Jennyfer [address] [place] [address] Encounter for supervision of other normal , unspecified trimester*; Uterine synechiae; Need for nsvhbpktzr-lthjifg-a ertussis (Tdap) vaccine Allergies No known active allergiesdocumented as of this encounter (statuses as of 09/14/2023) Medications Medication Sig Dispensed Refills Start Date End Date Status 28-0.8 MG Oral Tablet Take by mouth. Active Breast PumpIndications:Encou nter for supervision of other normal , unspecified trimester For lactating mother to breastfeed. 1 Each 08/06/2023 Active documented as of this encounter (statuses as of 09/14/2023) Active Problems Problem Noted Date Diagnosed Date Cervical high risk human pap illomavirus (HPV) [...] any current needs or questions 05/18/2023 Susan Landers RN 05/18/2023 Problem Action Taken Date entered Entered [...] current needs or questions 09/14/2023 Susan Landers RN 09/14/2023 Medical marijuana use 05/22/2019 Crohn's disease of small intestine with complica tion 04/21/2019 Pelvic pain in female 10/22/2017 Moderate episode of recurrent major depressive d isorder 10/22/2017 Anxiety 10/22/2017 Crohn's colitis 01/25/2016 Headache Overview: ICD-10 update of inactive term Estimated Date of Delivery Comme nts Yes 12/02/2023 Based on last me nstrual period of 02/25/2023 documented as of this encounter (statuses as of 09/14/2023) Resolved Problems Problem Noted Date Diagnosed Date [...] as of this encounter (statuses as of 09/14/2023) Immunizations Name Administration Dates Next Due HPV Vaccine, 4-Valent 04/28/2009,12/24/2008,0705/2008 TDAP (age 10 and older)(Boostrix) 09/14/2023,09/2019 TDAP, Age 7 and older, IM (Adacel) 08/14/2008 documented as of this encounter Social History Tobacco Use Types Packs/Day Years Used Date Smoking Tobacco: Never Smokeless Tobacco: Never Tobacco Cessation:Counseling Given: Not Answered Alcohol Use Standard Drinks/Week Comments No 0 [...] money to get more. Never true 07/20/2023 [place] Depression Scale Answer Date Recorded [place] Depression Scale Total 0 09/14/2023 The thought of harming myself has occurred to me . Never 09/14/2023 Estimated Date of Delivery Comme nts Yes [...] Reading Time Taken Comments Blood Pressure 108/62 09/14/2023 8:42 AM EDT Pulse - - Temperature - - Respiratory Rate - - Oxygen Saturation - - Inhaled Oxygen Concentration - - Weight 74 kg (163 lb 3.2 oz) 09/14/2023 8:42 AM EDT Height 160 cm (5' 3") 09/14/2023 8:42 AM EDT Body Mass Index 28.91 09/14/2023 8:42 AM EDT documented in this encounter Progress Notes * Sharon Hearn PA-C - 09/14/2023 9:06 AM EDT 28w5d Completing third tri labs today. Counseled on TDaP, accepts and given. Rh +, no indication for Rhogam Denies LOF, VB, contractions. Baby is active. RTC in 2 weeks Sharon Hearn PA-C documented in this encounter Nursing Notes * Susan Landers RN - 09/14/2023 9:00 AM EDT Patient here for TDAP injection. Patient doing well no complaints. Injection given IM as ordered. Patient tolerated well. Patient to follow up as directed. Patient instructed to call if any complications. Patient verbalized understanding of instructions given and her follow up appt for 2 weeks Injection site: Left Deltoid Medication Source: Dispensed stock medication Susan Landers RN * Susan Landers RN - 09/14/2023 8:43 AM EDT Patient here for SANNA 28w5d + FM Glucola and TDAP today No concerns Patient seen by [facility] Rolled Glass Crosscutter. Patient denies any questions or concerns. Susan Landers RN documented in this encounter Plan of Treatment Upcoming Encounters Date Type Department Care Team (Late st Contact Info) Description 09/25/2023 8:30 AM EDT Office Visit Gynecology/Obstetrics [facility] [address] [place] [address] Abigail Jung CRNP [address] [place] [address] Nurse Melquiades [facility] Return [facility] [address] [place] [address] 10/12/2023 8:15 AM EDT Office Visit Gynecology/Obstetrics [facility] [address] [place] [address] Abigail Jung CRNP [address] [place] [address] Nurse Melquiades [facility] Return [facility] [address] [place] [address] 01/22/2024 11:40 AM EDT Office Visit Gastroenterology, [facility] [address] [place] [address] Jessica Sexton MD [address] [place] [address] Health Maintenance Due Date Last Done Comments Hepatitis B (1 of 3 - 19+ 3-dose series) 2008 COVID-19 Vaccine (1 - 2022-24 season) 2022 Influenza Vaccine (FLU shot) (Season [...] unspecified trimester- Primary Uterine synechiae Intrauterine synechiae Need for mgaaztskdh-zsfowdp-qglwfutgf (Tdap) vaccine Need for prophylactic vaccination with combined bkrpdtttxy-tzqzxny-rrthjqmtq (DTP) vaccine documented in this encounter Care Teams Shoe Repairer Helper Relationship Specialty Start Date End Date Mary Ramos DO [address] [place] [address] PCP - General Family Medicine 09/22/16 documented as of this encounter
--- OUTSIDE RECORDS SUMMARY | 2023-12-01 09:52 | External Medical Summary | Summary of Care ---
Author Name Unknown Organization [facility] Address [address] [place] [facility] [place] [address] Phone [phone] Care Team Providers Care Cattle Care Worker Name Role Phone Mary Ramos DO Primary Care Provider Reason for Visit * Reason Comments [facility] Return Encounter Details Date Type Department Care Team (Late st Contact Info) Description 11/23/2023 3:30 PM EDT Office Visit Gynecology/Obstetri meredith Arnett [address] [facility] [place] [address] Violette Liao PA-C [address] [place], [place] [address] [place] [address] Nurse Aly Arnett Begin[facility] Return Jennyfer [address] [facility] [place] [address] Encounter for supervision of other normal , third trimester*; Maternal Crohn's disease affecting in third trimester (HCC); Uterine synechiae; GBS (group B Streptococcus carrier), +RV culture, currently Allergies No known active allergiesdocumented as of this encounter (statuses as of 11/23/2023) Medications Medication Sig Dispensed Refills Start Date End Date Status 28-0.8 MG Oral Tablet Take by mouth. Active Breast PumpIndications:Encou nter for supervision of other normal , unspecified trimester For lactating mother to breastfeed. 1 Each 08/06/2023 Active documented as of this encounter (statuses as of 11/23/2023) Active Problems Problem Noted Date Diagnosed Date GBS (group B Streptococcus c arrier), +RV culture, currently 11/12/2023 Overview: GBS positive at 36 weeks Results for orders placed or performed in visit on 11/09/23 GROUP B STREP CULTURE/PCR Specimen: Vaginal Rectal; Swab Result Value Ref Range Group B Strep PCR Result Positive (A) Negative GBS GBSCt 15.3 GBS SPCCt 0.0 Maternal Crohn's disease affecting 02/2024 Cervical high [...] or questions 09/14/2023 Susan Landers RN 09/14/2023 Problem Action Taken Date entered Entered by Date resolved Current needs or questions Patient denies having any current needs or questions 09/25/2023 Sophie Cazares RN 09/25/2023 Problem Action Taken Date entered Entered by Date resolved Current needs or questions Patient denies having any current needs or questions 11/09/2023 Susan Landers RN 11/09/2023 Problem Action Taken Date entered Entered by Date resolved Current needs or questions Patient denies having any current needs or questions 11/15/2023 Susan Landers RN 11/15/2023 Problem Action Taken Date entered Entered by Date resolved Current needs or questions Patient denies having any current needs or questions 11/23/2023 Sophie Cazares RN 11/23/2023 Medical marijuana use 05/22/2019 Crohn's disease of small intestine with complica tion 04/21/2019 Pelvic pain in female 10/22/2017 Moderate episode of recurrent major depressive d isorder 10/22/2017 Anxiety 10/22/2017 Crohn's colitis 01/25/2016 Headache Overview: ICD-10 update of inactive term Estimated Date of Delivery Comme nts Yes 12/02/2023 Based on last me nstrual period of 02/25/2023 documented as of this encounter (statuses as of 11/23/2023) Resolved Problems Problem Noted Date Diagnosed Date [...] as of this encounter (statuses as of 11/23/2023) Immunizations Name Administration Dates Next Due HPV [...] money to get more. Never true 07/20/2023 Laie Depression Scale Answer Date Recorded [place]ie Depression Scale Total 0 09/14/2023 The thought [...] Sign Reading Time Taken Comments Blood Pressure 126/78 11/23/2023 3:26 PM EDT Pulse - - Temperature - - Respiratory Rate - - Oxygen Saturation - - Inhaled Oxygen Concentration - - Weight 81.6 kg (180 lb) 11/23/2023 3:26 PM EDT Height 160 cm (5' 3") 11/23/2023 3:26 PM EDT Body Mass Index 31.89 11/23/2023 3:26 PM EDT documented in this encounter Progress Notes * Violette Liao PA-C - 11/23/2023 3:37 PM EDT Tracy Porter is a 33 year old female here for her routine OB appointment at 38w5d Her Estimated Date of Delivery: 12/02/23 REVIEW OF SYSTEMS She affirms movement. Denies vaginal bleeding, LOF, contractions, N/V, headaches, vision changes, chest pain, RUQ pain. Laie Depression Scale Laie Depression Scale Total: 0 Laie suicide question and score: Score of 3 = Yes, quite often. Score of 2 = Sometimes. Score of 1 = Hardly ever The thought of harming myself has occurred to me.: 0 PHYSICAL EXAM Filed Vitals: 11/23/23 1526 BP: 126/78 Weight: 81.6 kg (180 lb) Height: 1.6 m (5' 3") +FHT 150s Fundal height 38 cm ASSESSMENT/PLAN Encounter for supervision of other normal , third trimester (Primary) Maternal Crohn's disease affecting in third trimester (HCC) Uterine synechiae GBS (group B Streptococcus carrier), +RV culture, currently Supervision of - labor precautions and kick counts reviewed RTO in 1 week Violette Liao PA-C 11/23/2023 documented in this encounter Nursing Notes * Rachana Bartlett LPN - 11/23/2023 3:26 PM EDT 38W5D Had growth US today- 13%, COLETTE 18.0cm documented in this encounter Plan of Treatment Upcoming Encounters Date Type Department Care Team (Late st Contact Info) Description 11/30/2023 2:15 PM EDT Office Visit Gynecology/Obstetrics Nara Arnett [address] [place] [address] Amanda Coelho CRNP [address] [place] [address] Nurse Melquiades [facility] Return Jennyfer [address] [place] [address] 01/22/2024 11:40 AM EDT Office Visit Gastroenterology, Nara Arnett [place] [address] [place] [address] Jessica Sexton MD [address] [place] [address] Health Maintenance Due Date Last Done Comments Hepatitis B Vaccine (1 of 3 - 19+ 3-dose series) 2008 Depression Monitoring 01/12/2018 01/12/2017 COVID-19 Vaccine (1 - 2022-24 season) 2022 Influenza Vaccine (FLU shot) (#1) 2023 Pap Smear 12/01/2025 12/01/2022, 12/16, 10/22/2017, Additional history exists Cervical Cancer Screening 12/02/2027 HPV/Co-Test 12/02/2027 12/01/2022 DTaP,Tdap,and Td Vaccines (4 - Td or Tdap) 09/13/2033 09/14/2023, 04/21/2019, 08/14/2008 HPV (Gardasil) Vaccine Completed 0, 12/24/2008, 10/15/2008 MENINGOCOCCAL (MENACTRA/MENVEO) Aged Out No [...] Encounter for supervision of other normal , third trimester- Primary Maternal Crohn's disease affecting in third trimester (HCC) Uterine synechiae Intrauterine synechiae GBS (group B Streptococcus carrier), +RV culture, currently Supervision of other high-risk documented in this encounter Care Teams Cattle Care Worker Relationship Specialty Start Date End Date Mary Ramos DO [facility] [address] [place] [address] PCP - General Family Medicine 09/22/16 documented as of this encounter
--- OUTSIDE RECORDS SUMMARY | 2023-12-01 09:52 | External Medical Summary | Summary of Care ---
Author Name Unknown Organization [facility] Address [address] [facility] [place] [address] Phone [phone] Care Team Providers Care Line Camera Operator Name Role Phone Mary Ramos DO Primary Care Provider Reason for Visit * Reason Comments Healthy Beginnings Return Encounter Details Date Type Department Care Team (Late st Contact Info) Description 09/25/2023 8:30 AM EDT Office Visit Gynecology/Obstetri meredith Arnett [address] [facility] [place] [address] BackAbigail smith CRNP [address] [facility] [place] [address] Nurse Aly Arnett Beginnings Return Jennyfer [address] [place] [address] Encounter for supervision of other normal , unspecified trimester*; Uterine synechiae; Maternal Crohn's disease affecting in third trimester (HCC) Allergies No known active allergiesdocumented as of this encounter (statuses as of 09/25/2023) Medications Medication Sig Dispensed Refills Start Date End Date Status 28-0.8 MG Oral Tablet Take by mouth. Active Breast PumpIndications:Encou nter for supervision of other normal , unspecified trimester For lactating mother to breastfeed. 1 Each 08/06/2023 Active documented as of this encounter (statuses as of 09/25/2023) Active Problems Problem Noted Date Diagnosed Date [...] as of this encounter (statuses as of 09/25/2023) Resolved Problems Problem Noted Date Diagnosed Date [...] as of this encounter (statuses as of 09/25/2023) Immunizations Name Administration Dates Next Due HPV [...] money to get more. Never true 07/20/2023 [place] Depression Scale Answer Date Recorded [place] Depression Scale Total 0 09/14/2023 The thought [...] Sign Reading Time Taken Comments Blood Pressure 106/62 09/25/2023 8:39 AM EDT Pulse - - Temperature - - Respiratory Rate - - Oxygen Saturation - - Inhaled Oxygen Concentration - - Weight 75.8 kg (167 lb) 09/25/2023 8:39 AM EDT Height - - Body Mass Index 29.58 09/14/2023 8:42 AM EDT documented in this encounter Progress Notes * Abigail Jung CRNP - 09/25/2023 8:44 AM EDT 30w2d No concerns. Here with her father today. Baby is moving well. No ctx, leaking, bleeding. Recommend growth u/s due to maternal Crohn's, pt agreeable. Return in 2 weeks. ADA Cortez * Sheila Murguia MED DU - 09/25/2023 8:39 AM EDT 30w2d Denies vaginal bleeding/rom + movements No concerns documented in this encounter Nursing Notes * Sophie Cazares RN - 09/25/2023 8:46 AM EDT Patient seen by [facility] Room Service. documented in this encounter Plan of Treatment Upcoming Encounters Date Type Department Care Team (Late st Contact Info) Description 10/12/2023 8:15 AM EDT Office Visit Gynecology[facility]stetrics [facility] [place] [address] Abigail Jung CRNP [address] [place] [address] Nurse Aly Arnett Beginning Return [facility] [address] [facility] [place] [address] 10/26/2023 2:45 PM EDT Imaging Radiology [facility] [address] [facility] [address] [place] [address] 10/26/2023 3:30 PM EDT Office Visit Gynecology/Obstetrics [facility] [address] [facility] [place] [address] Violette Liao PA-C [address] [place] [address] [place] [address] Nurse Melquiades Healthy [facility] Return [facility] 132 [facility] [place] [address] 01/22/2024 11:40 AM EDT Office Visit Gastroenterology, [facility] [address] [place] [address] Jessica Sexton MD [address] [place] [address] Scheduled Orders Name Type Priority Associated Diagnoses Orde r Schedule US PREG FOLLOW-UP EACH FETUS Medical Imaging Routine Encounter for supervision of other normal , unspecified trimester Maternal Crohn's disease affecting in third trimester (HCC) Expected: 09/25/2023 (Approximate), Expires: 10/24/2024 Health Maintenance Due Date Last Done Comments [...] (HCC) documented in this encounter Care Teams Line Camera Operator Relationship Specialty Start Date End Date Mary Ramos DO [address] [place] [address] PCP - General Family Medicine 09/22/16 documented as of this encounter
--- OUTSIDE RECORDS SUMMARY | 2023-12-01 09:52 | External Medical Summary ---
Author Name Unknown Address Unknown Organization [id number]:LABORATORY [facility] - [address] [place] [address] Laboratory Report Ordering Provider Test Date Status MELBA GARCIA 08/07/2023 16:33:36 Final Observation Date Value Abnormality Reference (Units ) Status Vitamin B12 08/07/2023 16:33:36 [id number] (pg/mL) Final Performing Location LABORATORY [facility] - [address] [place] [address]
--- OUTSIDE RECORDS SUMMARY | 2023-12-01 09:52 | External Medical Summary | Summary of Care ---
Author Name Unknown Organization [facility] Address [address] [place] [address] Phone [phone] Care Team Providers Care Chemical Lab Supervisor Name Role Phone Mary Ramos DO Primary Care Provider Reason for Visit * Reason Comments Outpatient Testing Encounter Details Date Type Department Care Team (Late st Contact Info) Description 08/07/2023 2:10 PM EDT Laboratory Laboratory, [facility] [address] [facility] [place] [phone] [facility] [address] [place] [address] Crohn's disease of both small and large intestine without complication (HCC) Allergies No known active allergiesdocumented as of this encounter (statuses as of 08/07/2023) Medications Medication Sig Dispensed Refills Start Date End Date Status 28-0.8 MG Oral Tablet Take by mouth. 0 Active Breast PumpIndications:Encou nter for supervision of other normal , unspecified trimester For lactating mother to breastfeed. 1 Each 0 08/06/2023 Active documented as of this encounter (statuses as of 08/07/2023) Active Problems Problem Noted Date Diagnosed Date [...] or questions 06/15/2023 Sophie Cazares RN 06/15/2023 Medical marijuana use 05/22/2019 Crohn's disease of small intestine with complica tion 04/21/2019 Pelvic pain in female 10/22/2017 Moderate episode of recurrent major depressive d isorder 10/22/2017 Anxiety 10/22/2017 Crohn's colitis 01/25/2016 Headache Overview: ICD-10 update of inactive term Estimated Date of Delivery Comme nts Yes 12/02/2023 Based on last me nstrual period of 02/25/2023 documented as of this encounter (statuses as of 08/07/2023) Resolved Problems Problem Noted Date Diagnosed Date Resolved Date Supervision of normal first 08/07/2022 08/16/2022 Maternal Crohn's disease affecting 3 08/16/2022 Atypical squamous cell gtz es of [...] as of this encounter (statuses as of 08/07/2023) Immunizations Name Administration Dates Next Due HPV Vaccine, 4-Valent 04/28/2009,12/24/2008,05/2008 TDAP (age 10 and older)(Boostrix) 04/21/2019 TDAP (age 11 and older)(Adacel) 08/14/2008 documented as of this encounter Social [...] money to get more. Never true 07/20/2023 [place] Depression Scale Answer Date Recorded [place] Depression Scale Total 7 06/07/2022 The thought of harming myself has occurred to me . Never 06/07/2022 Estimated Date of Delivery Comme nts Yes [...] on file documented as of this encounter Plan of Treatment Upcoming Encounters Date Type Department Care Team (Late st Contact Info) Description 08/20/2023 4:15 PM EDT Office Visit Gynecology[facility] [address] [place] [address] Sharon Hearn PA-C [address] [place] [address] Nurse Melquiades [facility] Return [facility] [address] [place] [address] 01/22/2024 11:40 AM EDT Office Visit Gastroenterology, [facility] [address] [place] [address] Jessica Sexton MD [address] [facility] [place] [address] Pending Results Name Type Priority Associated Diagnoses Date /Time VITAMIN B12 Lab Routine Crohn's disease of both small and large intestine without complication (HCC) 08/07/2023 4:33 PM EDT FERRITIN Lab Routine Crohn's disease of both small and large intestine without complication (HCC) 08/07/2023 4:33 PM EDT 25-HYDROXY VITAMIN D Lab Routine Crohn's disease of both small and large intestine without complication (HCC) 08/07/2023 4:33 PM EDT Health Maintenance Due Date Last Done Comments Hepatitis B (1 of 3 - 19+ 3-dose series) 2008 COVID-19 Vaccine ( - 2022- season) 2022 Influenza Vaccine (FLU shot) (Season Ended) 2023 Pap Smear 12/01/2025 12/01/2022, 12/16, 10/22/2017, Additional history exists Cervical Cancer Screening 12/02/2027 HPV/Co-Test 12/02/2027 12/01/2022 DTaP,Tdap,and Td Vaccines (3 - Td or Tdap) 04/21/2029 04/21/2019, 08/14/2008 GARDASIL-HPV IMMUNIZATION SERIES Completed 04/28/2009, [...] as of this encounter Visit Diagnoses Diagnosis Crohn's disease of both small and large intestine without complication (HCC) Regional enteritis of small intestine with large intestine documented in this encounter Care Teams Chemical Lab Supervisor Relationship Specialty Start Date End Date Mary Ramos DO [address] [place] [address] [place] [address] PCP - General Family Medicine 09/22/16 documented as of this encounter
--- OUTSIDE RECORDS SUMMARY | 2023-12-01 09:52 | External Medical Summary ---
Author Name Unknown Address Unknown Organization [id number][facility] [address] [place] [address] Laboratory Report Ordering Provider Test Date Status LOLIS STEPHENSON 09/14/2023 09:21:23 Final Observation Date Value Abnormality Reference (Units ) Status Glucose [Moles/volume] in Serum or Plasma --1 hour post 50 g glucose PO 09/14/2023 09:21:23 121 70-129 (mg/dL) Final Performing Location [facility] - [address] [place] [address]
--- OUTSIDE RECORDS SUMMARY | 2023-12-01 09:52 | External Medical Summary ---
Author Name Unknown Address Unknown Organization [id number]:LABORATORY [facility] - [address] [place] [address] Laboratory Report Ordering Provider Test Date Status RADHABRAYDONELMO 08/07/2023 16:33:36 Final Observation Date Value Abnormality Reference (Units ) Status Ferritin 08/07/2023 16:33:36 36 13-150 (ng /mL) Final Performing Location LABORATORY [facility] - [address] [place] [address]
--- OUTSIDE RECORDS SUMMARY | 2023-12-01 09:52 | External Medical Summary | Summary of Care ---
Author Name Unknown Organization [facility] Address [address] [facility] [place] [address] Phone [phone] Care Team Providers Care Sticker Machine Operator Name Role Phone Mary Ramos DO Primary Care Provider Reason for Visit * Reason Comments Return Visit Encounter Details Date Type Department Care Team (Late st Contact Info) Description 06/15/2023 2:15 PM EST Office Visit Gynecology/Obstetri meredith Arnett [address] [facility] [place] [address] Amanda Coelho CRNP [address] [place] [address] Nurse Aly Arnett Beginnings Return Jennyfer [address] [place] [address] Encounter for supervision of other normal , unspecified trimester*; Uterine synechiae Allergies No known active allergiesdocumented as of this encounter (statuses as of 06/15/2023) Medications Medication Sig Dispensed Refills Start Date End Date Status 28-0.8 MG Oral Tablet Take by mouth. 0 Active documented as of this encounter (statuses as of 06/15/2023) Active Problems Problem Noted Date Diagnosed Date [...] as of this encounter (statuses as of 06/15/2023) Resolved Problems Problem Noted Date Diagnosed Date [...] as of this encounter (statuses as of 06/15/2023) Immunizations Name Administration Dates Next Due HPV Vaccine, 4-Valent 04/28/2009,12/24/2008,0705/2008 TDAP (age 10 and older)(Boostrix) 04/21/2019 TDAP [...] you got the money to buy more. Patient declined Within the past 12 months, t he food you bought just didn't last and you didn't have money to get more. Patient declined [place] Depression Scale Answer Date Recorded [place] Depression Scale Total 7 06/07/2022 The thought [...] Sign Reading Time Taken Comments Blood Pressure 112/64 06/15/2023 2:17 PM EST Pulse - - Temperature - - Respiratory Rate - - Oxygen Saturation - - Inhaled Oxygen Concentration - - Weight 68.5 kg (151 lb) 06/15/2023 2:17 PM EST Height 160 cm (5' 3") 06/15/2023 2:17 PM EST Body Mass Index 26.75 06/15/2023 2:17 PM EST documented in this encounter Progress Notes * Amanda Coelho CRNP - 06/15/2023 2:33 PM EST 15w5d Questions regarding calcium intake. No other concerns. Some headaches and nausea. No bleeding. MSAFP today. Anatomy u/s with next visit. ADA Snell * Maura Subramanian LPN - 06/15/2023 2:17 PM EST 15w5d documented in this encounter Nursing Notes * Maura Subramanian LPN - 06/15/2023 2:21 PM EST 15W5D Wondering how much calcium she should be taking documented in this encounter Plan of Treatment Upcoming Encounters Date Type Department Care Team (Late st Contact Info) Description 07/20/2023 9:45 AM EDT Imaging Radiology [facility] [address] [address] 07/20/2023 11:15 AM EDT Office Visit Gynecology/Obstetrics [facility] [address] [place] [address] Sharon Hearn PA-C [address] [place] [address] Nurse Melquiades Healthy [facility] Return Jennyfer [address] [place] [address] 08/07/2023 4:00 PM EDT Office Visit Gastroenterology, [facility] [address] [place] [address] Jessica Sexton MD [address] [place] [address] Pending Results Name Type Priority Associated Diagnoses Date /Time MATERNAL SERUM AFP Lab Routine Encounter for supervision of other normal , unspecified trimester 06/15/2023 2:46 PM EST Scheduled Orders Name Type Priority Associated Diagnoses Orde r Schedule US PREG SINGLE/1ST GEST, 14 WEEKS OR LATER Medical Imaging Routine Encounter for supervision of other normal , unspecified trimester Expected: 07/16/2023, Expires: 07/15/2024 Health Maintenance Due Date Last Done Comments Hepatitis B (1 of 3 - 19+ 3-dose series) 2008 Depression Screening 01/12/2018 01/12/2017 COVID-19 Vaccine (2022-24 season) 2022 Influenza Vaccine (FLU shot) (#1) 2022 Pap Smear 12/01/2025 12/01/2022, 12/16, 10/22/2017, Additional [...] unspecified trimester- Primary Uterine synechiae Intrauterine synechiae documented in this encounter Care Teams Sticker Machine Operator Relationship Specialty Start Date End Date Mary Ramos DO [address] [place] [address] PCP - General Family Medicine 09/22/16 documented as of this encounter
--- OUTSIDE RECORDS SUMMARY | 2023-12-01 09:52 | External Medical Summary | Summary of Care ---
Author Name Unknown Organization [facility] Address [address] [facility] [place] [address] Phone [phone] Care Team Providers Care Milk House Worker Name Role Phone Mary Ramos DO Primary Care Provider Reason for Visit * Reason Comments Return Visit Encounter Details Date Type Department Care Team (Late st Contact Info) Description 07/20/2023 11:15 AM EDT Office Visit Gynecology/Obstetri meredith Arnett [address] [place] [address] Sharon Hearn PA-C [address] [place] [address] Nurse Aly Arnett Beginnings Return Jennyfer [address] [place] [address] Encounter for supervision of other normal , unspecified trimester*; Uterine synechiae Allergies No known active allergiesdocumented as of this encounter (statuses as of 07/20/2023) Medications Medication Sig Dispensed Refills Start Date End Date Status 28-0.8 MG Oral Tablet Take by mouth. 0 Active documented as of this encounter (statuses as of 07/20/2023) Active Problems Problem Noted Date Diagnosed Date [...] as of this encounter (statuses as of 07/20/2023) Resolved Problems Problem Noted Date Diagnosed Date [...] as of this encounter (statuses as of 07/20/2023) Immunizations Name Administration Dates Next Due HPV [...] money to get more. Never true 07/20/2023 [place] Depression Scale Answer Date Recorded [place] Depression Scale Total 7 06/07/2022 The thought [...] Sign Reading Time Taken Comments Blood Pressure 108/68 07/20/2023 10:50 AM EDT Pulse - - Temperature - - Respiratory Rate - - Oxygen Saturation - - Inhaled Oxygen Concentration - - Weight 70.3 kg (155 lb) 07/20/2023 10:50 AM EDT Height 160 cm (5' 3") 07/20/2023 10:50 AM EDT Body Mass Index 27.46 07/20/2023 10:50 AM EDT documented in this encounter Progress Notes * Sharon Hearn PA-C - 07/20/2023 11:05 AM EDT 20w5d Anatomy today: final report pending. +FHT with u/s. Denies VB, LOF, contractions. Pos fm. Eating healthy, having smoothly with bananas in morning. MSAFP/NIPT complete and WNL. RTC in 4 weeks Sharon Hearn PA-C documented in this encounter Nursing Notes * Rachana Bartlett LPN - 07/20/2023 10:57 AM EDT 20w5d Denies concerns. Anatomy US completed today. documented in this encounter Plan of Treatment Upcoming Encounters Date Type Department Care Team (Late st Contact Info) Description 08/07/2023 4:00 PM EDT Office Visit Gastroenterology, [facility] [address] [place] [address] Jessica Sexton MD [address] [place] [address] 08/20/2023 4:15 PM EDT Office Visit Gynecology/Obstetrics [facility] [address] [place] [address] Sharon Hearn PA-C [address] [place] [address] Nurse Melquiades Healthy [facility] Return Jennyfer [address] [place] [address] Health Maintenance Due Date Last Done Comments Hepatitis B (1 of 3 - 19+ 3-dose series) 2008 Depression Screening 01/12/2018 01/12/2017 COVID-19 Vaccine (1 - 2022-24 [...] synechiae documented in this encounter Care Teams Milk House Worker Relationship Specialty Start Date End Date Mary Ramos DO [address] [place] [address] PCP - General Family Medicine 09/22/16 documented as of this encounter
--- OUTSIDE RECORDS SUMMARY | 2023-12-01 09:52 | External Medical Summary | Summary of Care ---
Author Name Unknown Organization [facility] Address [address] [place] [facility] [place] [address] Phone [phone] Care Team Providers Care Rollway Worker Name Role Phone Mary Ramos DO Primary Care Provider Reason for Visit * Reason Comments Healthy Beginnings Return Encounter Details Date Type Department Care Team (Late st Contact Info) Description 10/26/2023 3:30 PM EDT Office Visit Gynecology/Obstetri meredith Arntet [address] [facility] [place] [address] Violette Liao PA-C [address] [place] [address] [place] [address] Nurse Aly Arnett Beginnings Return Jennyfer [address] [facility] [place] [address] Encounter for supervision of other normal , third trimester*; Maternal Crohn's disease affecting in third trimester (HCC); Uterine synechiae Allergies No known active allergiesdocumented as of this encounter (statuses as of 10/26/2023) Medications Medication Sig Dispensed Refills Start Date End Date Status 28-0.8 MG Oral Tablet Take by mouth. Active Breast PumpIndications:Encou nter for supervision of other normal , unspecified trimester For lactating mother to breastfeed. 1 Each 08/06/2023 Active documented as of this encounter (statuses as of 10/26/2023) Active Problems Problem Noted Date Diagnosed Date [...] as of this encounter (statuses as of 10/26/2023) Resolved Problems Problem Noted Date Diagnosed Date [...] as of this encounter (statuses as of 10/26/2023) Immunizations Name Administration Dates Next Due HPV [...] money to get more. Never true 07/20/2023 [place] Depression Scale Answer Date Recorded [place] Depression Scale Total 0 09/14/2023 The thought [...] Sign Reading Time Taken Comments Blood Pressure 98/62 10/26/2023 3:08 PM EDT Pulse - - Temperature - - Respiratory Rate - - Oxygen Saturation - - Inhaled Oxygen Concentration - - Weight 78.6 kg (173 lb 3.2 oz) 10/26/2023 3:08 P M EDT Height 160 cm (5' 3") 10/26/2023 3:08 PM EDT Body Mass Index 30.68 10/26/2023 3:08 PM EDT documented in this encounter Progress Notes * Violette Liao PA-C - 10/26/2023 3:16 PM EDT Tracy Porter is a 33 year old female here for her routine OB appointment at 34w5d Her Estimated Date of Delivery: 12/02/23 Had growth U/S today. Finalized reprot not available at the time of her appointment. Review of preliminary PACS images shows normal growth and fluid levels. REVIEW OF SYSTEMS She affirms movement. Denies vaginal bleeding, LOF, contractions, N/V, headaches, vision changes, chest pain, RUQ pain. PHYSICAL EXAM BP 98/62 | Ht 1.6 m (5' 3") | Wt 78.6 kg (173 lb 3.2 oz) | LMP 02/25/2023 | BMI 30.68 kg/m | BSA 1.87 m +FHT 140s Fundal height 35 cm ASSESSMENT/PLAN Encounter for supervision of other normal , third trimester (Primary) - US PREG FOLLOW-UP EACH FETUS; Future; Expected date: 11/26/2023 Maternal Crohn's disease affecting in third trimester (HCC) - US PREG FOLLOW-UP EACH FETUS; Future; Expected date: 11/26/2023 Uterine synechiae Supervision of - discussed GBS and to expect swab to be complete at next visit - labor precautions and kick counts reviewed RTO in ~2 weeks Violette Liao PA-C 10/26/2023 documented in this encounter Nursing Notes * Rachana Bartlett LPN - 10/26/2023 3:12 PM EDT 34w5d Given labor instructions Had [facility] US today- 16%, COLETTE 17.7cm. documented in this encounter Plan of Treatment Upcoming Encounters Date Type Department Care Team (Late st Contact Info) Description 11/09/2023 1:30 PM EDT Office Visit Gynecology/Obstetrics [facility] [address] [place] [address] Sharon Hearn PA-C [address] [place] [address] Nurse Melquiades Healthy Beginning Return [facility] [address] [place] [address] 11/16/2023 8:15 AM EDT Office Visit Gynecology/Obstetrics [facility] [address] [place] [address] Abigail Jung CRNP [address] [place] [address] Nurse Melquiades Healthy [facility] Return [facility] [address] [place] [address] 11/23/2023 2:45 PM EDT [facility] 2nd [facility] [place] [address] [place] [address] 11/23/2023 3:30 PM EDT Office Visit Gynecology/Obstetrics [facility] [address] [place] [address] Violette Liao PA-C [address] [place], [place] [address], [place] [address] Nurse Melquiades Healthy [facility] Return Jennyfer [address] [place] [address] 11/30/2023 2:15 PM EDT Office Visit Gynecology/[facility]stetrics [facility] [place] [address] Amanda Coelho CRNP [address] [place] [address] Nurse Melquiades Healthy Beginning Return Jennyfer [address] [place] [address] 01/22/2024 11:40 AM EDT [facility] [address] [place] [address] Jessica Sexton MD [address] [place] [address] Scheduled Orders Name Type Priority Associated Diagnoses Orde r Schedule US PREG FOLLOW-UP EACH FETUS Medical Imaging Routine Encounter for supervision of other normal , third trimester Maternal Crohn's disease affecting in third trimester (HCC) Expected: 11/26/2023 (Approximate), Expires: 11/25/2024 Health Maintenance Due Date Last Done Comments Hepatitis B Vaccine (1 of 3 - 19+ 3-dose series) 2008 Depression Monitoring 01/12/2018 01/12/2017 COVID-19 Vaccine ( - 2022-24 season) 2022 Influenza Vaccine (FLU [...] third trimester (HCC) Uterine synechiae Intrauterine synechiae documented in this encounter Care Teams Rollway Worker Relationship Specialty Start Date End Date Mary Ramos DO [address] [place] [address] PCP - General Family Medicine 09/22/16 documented as of this encounter
--- OUTSIDE RECORDS SUMMARY | 2023-12-01 09:52 | External Medical Summary | Summary of Care ---
Author Name Unknown Organization [facility] Address [address] [place] [facility] [place] [address] Phone [phone] Care Team Providers Care Ccnp Name Role Phone Mary Ramos DO Primary Care Provider Reason for Visit * Reason Comments Outpatient Testing * (Within 10 days (routine)) - Authorized Specialty Diagnoses / Procedures Referred By Contac t Referred To Contact Diagnoses Crohn's disease of both small and large intestine without complication (HCC) Procedures CALPROTECTIN, STOOL Jessica Sexton MD [address] [place] [address] Referral ID Status Reason Start Date Expiration Date V isits Requested Visits Authorized [id number] Authorized 08/07/2023 999 [id number] Encounter Details Date Type Department Care Team (Late st Contact Info) Description 08/20/2023 4:00 PM EDT Laboratory Laboratory, [facility] [address] [facility] [place] [phone] [place], Specimen Drop Off [facility] [address] [place] [place] [address] Crohn's disease of both small and large intestine without complication (HCC) Allergies No known active allergiesdocumented as of this encounter (statuses as of 08/20/2023) Medications Medication Sig Dispensed Refills Start Date End Date Status 28-0.8 MG Oral Tablet Take by mouth. 0 Active Breast PumpIndications:Encou nter for supervision of other normal , unspecified trimester For lactating mother to breastfeed. 1 Each 0 08/06/2023 Active documented as of this encounter (statuses as of 08/20/2023) Active Problems Problem Noted Date Diagnosed Date [...] as of this encounter (statuses as of 08/20/2023) Resolved Problems Problem Noted Date Diagnosed Date [...] as of this encounter (statuses as of 08/20/2023) Immunizations Name Administration Dates Next Due HPV [...] money to get more. Never true 07/20/2023 [place] Depression Scale Answer Date Recorded [place] Depression Scale Total 7 06/07/2022 The thought [...] Care Team (Late st Contact Info) Description 01/22/2024 11:40 AM EDT Office Visit Gastroenterology, [facility] [address] [place] [address] Jessica Sexton MD [address] [place] [address] Pending Results Name Type Priority Associated Diagnoses Date /Time CALPROTECTIN, STOOL Lab Routine Crohn's disease of both small and large intestine without complication (HCC) 08/20/2023 4:01 PM EDT Health Maintenance Due Date Last [...] intestine documented in this encounter Care Teams Ccnp Relationship Specialty Start Date End Date Mary Ramos DO [facility] [place] [address] PCP - General Family Medicine 09/22/16 documented as of this encounter
--- OUTSIDE RECORDS SUMMARY | 2023-12-01 09:52 | External Medical Summary | Summary of Care ---
Author Name Unknown Organization [facility] Address [address] [facility] [address] Phone [phone] Care Team Providers Care Supervisor Sample Name Role Phone Mary Ramos DO Primary Care Provider Reason for Visit * Reason Comments Healthy Beginnings Return Encounter Details Date Type Department Care Team (Late st Contact Info) Description 11/30/2023 2:15 PM EDT Office Visit Gynecology/Obstetri meredith Arnett [address] [facility] [place] [address] Amanda [facility]elho CRNP [address] [facility] [address] Nurse Aly Arnett Beginnings Return Jennyfer [address] [facility] [address] Encounter for supervision of other normal , unspecified trimester*; Uterine synechiae; Maternal Crohn's disease affecting , antepartum (HCC); GBS (group B Streptococcus carrier), +RV culture, currently Allergies No known active allergiesdocumented as of this encounter (statuses as of 11/30/2023) Medications Medication Sig Dispensed Refills Start Date End Date Status 28-0.8 MG Oral Tablet Take by mouth. Active Breast PumpIndications:Encou nter for supervision of other normal , unspecified trimester For lactating mother to breastfeed. 1 Each 08/06/2023 Active documented as of this encounter (statuses as of 11/30/2023) Active Problems Problem Noted Date Diagnosed Date [...] or questions 11/23/2023 Sophie Cazares RN 11/23/2023 Problem Action Taken Date entered Entered by Date resolved Current needs or questions Patient denies having any current needs or questions 11/30/2023 Serenity Fontana RN 11/30/2023 Medical marijuana use 05/22/2019 Crohn's disease of small intestine with complica tion 04/21/2019 Pelvic pain in female 10/22/2017 Moderate episode of recurrent major depressive d isorder 10/22/2017 Anxiety 10/22/2017 Crohn's colitis 01/25/2016 Headache Overview: ICD-10 update of inactive term Estimated Date of Delivery Comme nts Yes 12/02/2023 Based on last me nstrual period of 02/25/2023 documented as of this encounter (statuses as of 11/30/2023) Resolved Problems Problem Noted Date Diagnosed Date [...] as of this encounter (statuses as of 11/30/2023) Immunizations Name Administration Dates Next Due HPV Vaccine, 4-Valent 04/28/2009,12/24/2008,05/2008 TDAP (age 10 and older)(Boostrix) 09/14/2023,09/2019 TDAP, [...] money to buy more. Never true 07/20/19 Within the past 12 months, t he food you bought just didn't last and you didn't have money to get more. Never true 07/20/2023 [place] Depression Scale Answer Date Recorded [place] Depression Scale Total 0 11/23/2023 The thought of harming myself has occurred to me . Never 11/23/2023 Childcare Answer Date Recorded Do you feel [...] 07/20/2023 Does the household have a re lar source of income? (Household - for ages [...] Sign Reading Time Taken Comments Blood Pressure 116/78 11/30/2023 2:29 PM EDT Pulse - - Temperature - - Respiratory Rate - - Oxygen Saturation - - Inhaled Oxygen Concentration - - Weight 82.1 kg (181 lb) 11/30/2023 2:29 PM EDT Height 160 cm (5' 3") 11/30/2023 2:29 PM EDT Body Mass Index 32.06 11/30/2023 2:29 PM EDT documented in this encounter Progress Notes * Amanda Coelho CRNP - 11/30/2023 3:01 PM EDT 39w5d Feeling "off" today. A bit lightheaded/dizzy, cramping. Baby is active. Denies regular contractions. Would like cervix checked. Discussed IOL. She is agreeable. Explained limited availability next week at [facility], she is not agreeable to delivery at any other hospital. Snack Bar Attendant Documentation Provider requested associate material handler. Name of associate material handler: Rachana Cervix posterior, unable to assess for dilation d/t position. ADA Snell documented in this encounter Nursing Notes * Serenity Fontana RN - 11/30/2023 2:41 PM EDT Patient seen by [facility] [place]. Patient denies any questions or concerns. * Rachana Bartlett LPN - 11/30/2023 2:34 PM EDT 39w5d Feeling a little "off". Kind of lightheaded, dizzy feeling. Reports good hydration and she did justeat something. Mild cramps. documented in this encounter Plan of Treatment Upcoming Encounters Date Type Department Care Team (Late st Contact Info) Description 01/22/2024 11:40 AM EDT Office Visit Gastroenterology, [facility] [address] [place] [address] Jessica Sexton MD [address] [place] [address] Health Maintenance Due Date Last Done Comments Hepatitis B Vaccine (1 of 3 - 19+ 3-dose series) 2008 Depression Monitoring 01/12/2018 01/12/2017 COVID-19 Vaccine (2022- season) 2022 Influenza Vaccine (FLU shot) (#1) [...] synechiae Intrauterine synechiae Maternal Crohn's disease affecting , antepartum (HCC) GBS (group B Streptococcus carrier), +RV culture, currently Supervision of other high-risk documented in this encounter Care Teams Supervisor Sample Relationship Specialty Start Date End Date Mary Ramos DO [address] [place] [address] PCP - General Family Medicine 09/22/16 documented as of this encounter
--- OUTSIDE RECORDS SUMMARY | 2023-12-01 09:52 | External Medical Summary ---
Author Name Unknown Address Unknown Organization K01:[facility] [place] [address] [place] [address] Laboratory Report Ordering Provider Test Date Status LOLIS STEPHENSON 09/14/2023 09:21:23 Final Observation Date Value Abnormality Reference (Units ) Status Treponema pallidum Ab [Presence] in Serum by Immunoassay 09/14/2023 09:21:23 Nonreactive Nonreactive Final No serologic evidence of syp hilis. No additional testing clinicially indicated at this time. Consider repeat testing in 2-4 weeks if acute or primary syphilis is suspected. Performing Location [facility] [place] [address] [place] [address]
--- OUTSIDE RECORDS SUMMARY | 2023-12-01 09:52 | External Medical Summary | Summary of Care ---
Author Name Unknown Organization [facility] Address [address] [facility] [place] [address] Phone [phone] Care Team Providers Care Nut Feeder Name Role Phone Rachel Mary Huffman DO Primary Care Provider Reason for Referral * (Within 10 days (routine)) - Authorized Specialty Diagnoses / Procedures Referred By Contac t Referred To Contact Diagnoses Crohn's disease of both small and large intestine without complication (HCC) Procedures CALPROTECTIN, STOOL Jessica Sexton MD [address] [address] Referral ID Status Reason Start Date Expiration Date V isits Requested Visits Authorized [id number] Authorized 08/07/2023 999 999 Reason for Visit * Reason Comments Follow Up 5 month follow up Encounter Details Date Type Department Care Team (Late st Contact Info) Description 08/07/2023 4:00 PM EDT Office Visit Gastroenterology, [facility] [address] [address] Jessica Sexton MD [address] [address] Crohn's disease of both small and large intestine without complication (HCC)* Allergies No known active allergiesdocumented as of this encounter (statuses as of 08/14/2023) Medications Medication Sig Dispensed Refills Start Date End Date Status 28-0.8 MG Oral Tablet Take by mouth. 0 Active Breast PumpIndications:Encou nter for supervision of other normal , unspecified trimester For lactating mother to breastfeed. 1 Each 0 08/06/2023 Active documented as of this encounter (statuses as of 08/14/2023) Active Problems Problem Noted Date Diagnosed Date [...] as of this encounter (statuses as of 08/14/2023) Resolved Problems Problem Noted Date Diagnosed Date [...] as of this encounter (statuses as of 08/14/2023) Immunizations Name Administration Dates Next Due HPV Vaccine, 4-Valent 04/28/2009,12/24/2008,07/0 05/2008 TDAP (age 10 and older)(Boostrix) 04/21/2019 TDAP [...] money to get more. Never true 07/20/2023 [place] Depression Scale Answer Date Recorded [place] Depression Scale Total 7 06/07/2022 The thought [...] Sign Reading Time Taken Comments Blood Pressure 106/72 08/07/2023 3:53 PM EDT Pulse 78 08/07/2023 3:53 PM EDT Temperature 36.6 C (97.9 F) 08/07/2023 3:53 PM ED T Respiratory Rate - - Oxygen Saturation 100% 08/07/2023 3:53 PM EDT Inhaled Oxygen Concentration - - Weight 71.4 kg (157 lb 4.8 oz) 08/07/2023 3:53 P M EDT Height 160 cm (5' 3") 08/07/2023 3:53 PM EDT Body Mass Index 27.86 08/07/2023 3:53 PM EDT documented in this encounter Progress Notes * Jessica Sexton MD - 08/14/2023 3:58 PM EDT HPI: 27 year old female seen for abdominal pain. She has a diagonsis of possible Crohn's disease. She had terminal ileitis on csocpy last Apr with bx showing acute and chornic colitis and short segment of terminal ileitis on MRE last May. She was placed on Apriso, but did not take. At present, she has nausea and vomiting that occur every morning. She may have occasional abdominalbloating. She takes Zofran once in the morning with some relife. She has BM's once a day - occasionally loose. She does occasionally have days when her stool frequency is increased. She has acid reflux, but takes OTC Priulosec onec in the while. She spokes marijuana 3-4 x a month for nausea. She is dairy free. Her appetite is reasonable. August 2016:STrictured IC valve, uncable to intubate. CT enterography with terminal ileitis. 09/2016: Still having abdominal bloating. Will have BM, but wll take 20 mins to have a BM - this relieves bloating. Occasional nausea or vomiting. Appetite is fair - nausea prevents pt from eating , " I ease into eating." Completed 10 days of cipro - no clear improvement. Taking dicylcomiine 2 x since her last visit - she felt nauseous shortly afterwards, and is not sure if it helped her bloating. 03/2017: Doing really well. She has cleaned up her diet - avoiding fatty food, eliminates dairy, eating regular meals. Occasional bloating. No nausea or vomiting. Appetite is good. Two or three bowel movements are well. Occasional Marijuana use - last use 2 weeks ago. Tried IBgard - has helped. 10/2017: She is using medicinal marijuana, and her nausea remains under control. Her BM's are unremarkable.She has gained weight. Occ bloating. Not using Bentyl, IBgard. Occ Zofran. Avoiding milk, restricting vegetables to one serving a day, generally follows a low fat/low fiber. 01/2018: Was doing well until 1 week ago. Thurs am, woke with cramping in LLQ quadrant. Pain was colicky. Seen in ER - labs, incl CRP unrmarkable; no CT done; AXR unremarkable, given Morphine and oxycodone. Pt continued to have intermittent pain, intremittent morning nausea. Vomiting bilious fluid in am. Returned to ER Sunday with epigastric pressure, bloating. Labs in ER unremarkable. Yesterday, continued to have pain; again described as bloating, as sensation of needing to have BM.Appetite has been poor --> reluctant to eat due to pain, has been avoiding Food; she does not notice weight loss, but abt 5 lbs since Dec in [facility]. BM's have decreased frequency - BM yesterday, loose; today was formed, small volume. Symptoms resemble prior flares. Vaping MJ - Card has , so using less, but o/y product is the same. LMP 2 weeks ago; no prior of similar mid cycle pain. No NSAIDs. No fever. 11/2018: Episodes of bloating and cramping in June, seen in ER. SYmptoms resolved in a few days spontaneously. She had loose stool early October during trip to [place]. At present, no complaints. Vapes MJ twice daily. She has mild nausea in am. She has soft stool twice daily. Denies abd pain. Weight stable. Eats well rounded diet. 07/06: She is 8 weeks . She has no symptoms. She has no nausea. No bowel symptoms. Remains dairy free, gluten free. 08/07: Prev had misciarriage, but is now second trimester . Prev with nausea during first trimester, now no complaints. ALLERGIES: Review of patient's allergies indicates: No Known Allergies Past Medical History: Diagnosis Date Anxiety ASCUS with positive high risk HPV cervical 12/06/2022 Normal colposcopy, repeat pap 2023 Crohn's disease of small intestine with complication (HCC) 04/21/2019 GERD (gastroesophageal reflux disease) Moderate episode of recurrent major depressive disorder (HCC) 10/22/2017 Past Surgical History: Procedure Laterality Date COLONOSCOPY COLONOSCOPY, DIAGNOSTIC (RECTUM) 05/26/2015 inflammation on bx/COLONOSCOPY FLEXIBLE PROXIMAL DIAGNOSTIC performed by Buddy La DO at ENDOSCOPY [facility] COLONOSCOPY, DIAGNOSTIC (RECTUM) 09/13/2016 normal bx/COLONOSCOPY FLEXIBLE PROXIMAL DIAGNOSTIC performed by Jessica Sexton MD at ENDOSCOPY [facility] COLPOSCOPY OF CERVIX W/BIOPSY 12/01/2022 DILATION AND CURETTAGE (D&C) Bilateral 08/17/2022 DILATION AND CURETTAGE performed by Percy Kapoor MD at OR [facility] EGD, FLEXIBLE, DIAGNOSTIC 05/26/2015 normal bx/ESOPHAGOGASTRODUODENOSCOPY (EGD), FLEXIBLE, TRANSORAL, DIAGNOSTIC performed by Buddy La DO at ENDOSCOPY [facility] EGD, FLEXIBLE, DIAGNOSTIC 09/13/2016 normal bx/ESOPHAGOGASTRODUODENOSCOPY (EGD), FLEXIBLE, TRANSORAL, DIAGNOSTIC performed by Jessica Sexton MD at ENDOSCOPY [facility] Family History Problem Relation Age of Onset Cancer Grandmother (Maternal) breast? - in her 30s or 40s No Past Hx None no known ovarian or colon Ca Cancer Grandmother (Paternal) breast ca Hypertension Grandfather (Paternal) Diabetes None Blood Disorder None Thyroid Disorder None Social History Socioeconomic History Marital status: Occupational History Occupation: medical billing Tobacco Use Smoking status: Never Smokeless tobacco: Never Vaping Use Vaping Use: Never used Substance and Sexual Activity Alcohol use: No Drug use: Not Currently Sexual activity: Yes Partners: Male Social Determinants of Health Food Insecurity: No Food Insecurity (07/20/2023) Hunger Vital Sign Worried About Running Out of Food in the Last Year: Never true Ran Out of Food in the Last Year: Never true Current Outpatient Medications Medication Sig Dispense Refill 28-0.8 MG Oral Tablet Take by mouth. Breast Pump For lactating mother to breastfeed. 1 Each 0 No current facility-administered medications for this visit. BP 106/72 (BP Site: Left Arm, BP Position: Sitting, BP Cuff Size: Regular) | Pulse 78 | Temp 36.6 C (97.9 F) (Tympanic) | Ht 1.6 m (5' 3") | Wt 71.4 kg (157 lb 4.8 oz) | LMP 02/25/2023 | SpO2 100% | BMI 27.86 kg/m | BSA 1.78 m GENERAL: Thin, pleasant in no acute distress ABDOMEN: non tender EXTREMITIES: no palmar erythema, no edema, no skin discoloration, no clubbing, no cyanosis NEURO: no lateralizing findings, Sensory/Motor grossly normal ASSESSMENT/PLAN: Crohn's disease Ileitis with IC valve stricture N/v, possibly functional Not on meds, currently - Doing well, cont to defer med therapy. Will check B12, ferritin, folate, calpro. - Plan for Third trimester anal exam; she has no h/o perianal disease, no contra-indication to vaginal delivery. RTC 6 mos Jessica Sexton MD documented in this encounter Nursing Notes * Arnold Brown CMA - 08/07/2023 3:53 PM EDT Chief Complaint Patient presents with Follow Up 5 month follow up Tracy Porter is a 32 year old female who presents today for a 5 month follow up for Crohn's Disease. She states that she is doing well. She has no symptoms to report. documented in this encounter Plan of Treatment Upcoming Encounters Date Type Department Care Team (Late st Contact Info) Description 08/20/2023 4:15 PM EDT Office Visit Gynecology/Obstetrics [facility] [address] [place] [address] Sharon Hearn PA-C [address] [place] [address] Nurse Melquiades [facility] Return [facility] [address] [place] [address] 01/22/2024 11:40 AM EDT Office Visit Gastroenterology, [facility] [address] [place] [address] Jessica Sexton MD [address] [place] [address] Scheduled Orders Name Type Priority Associated Diagnoses Orde r Schedule CALPROTECTIN, STOOL Lab Routine Crohn's disease of both small and large intestine without complication (HCC) Expected: 08/07/2023, Expires: 08/06/2024 Health Maintenance Due Date Last Done Comments Hepatitis B (1 of 3 - 19+ 3-dose series) 2008 COVID-19 Vaccine (2022- season) 2022 Influenza Vaccine [...] Not on filedocumented as of this encounter Results * 25-HYDROXY VITAMIN D (08/07/2023 4:33 PM EDT) 25-Hydroxy Vitamin D 53 >19 ng/mL 08/08/2023 1:29 AM EDT LABORATORY C Blood Venous blood specimen / Unknown Venipuncture / Unknown 08/07/2023 4:33 PM EDT 08/07/2023 4:33 PM EDT Narrative LABORATORY [facility] - 08/08/2023 1:29 AM EDT Deficient: <20 ng/mL Insufficient: 20-29 ng/mL Recommended/Optimum:30-50 ng/mL Vitamin D intoxication is rare. If suspicious of Vitamin D toxicity, evaluation of serum Calcium and PTH is recommended. Jessica Sexton MD LAB BLOOD ORDER [facility] [address] [place] [address] * FERRITIN (08/07/2023 4:33 PM EDT) Ferritin 36 13 - 150 ng/mL 08/08/2023 1:29 AM EDT LABORATORY [facility] Blood Venous blood specimen / Unknown Venipuncture / Unknown 08/07/2023 4:33 PM EDT 08/07/2023 4:33 PM EDT Jessica Sexton MD LAB BLOOD ORDER [facility] [address] [place] [address] * VITAMIN B12 (08/07/2023 4:33 PM EDT) Vitamin B12 340 232 - 1,245 pg/mL 08/08/2023 1:29 AM EDT LABORATORY [facility] Blood Venous blood specimen / Unknown Venipuncture / Unknown 08/07/2023 4:33 PM EDT 08/07/2023 4:33 PM EDT Jessica Sexton MD LAB BLOOD ORDER [facility] [address] [place] [address] documented in this encounter Visit Diagnoses Diagnosis Crohn's disease of both small and large intestine without complication (HCC)- Primary Regional enteritis of small intestine with large intestine documented in this encounter Care Teams Nut Feeder Relationship Specialty Start Date End Date Mary Ramos DO [facility] [place] [address] PCP - General Family Medicine 09/22/16 documented as of this encounter
--- OUTSIDE RECORDS SUMMARY | 2023-12-01 09:52 | External Medical Summary | Summary of Care ---
Author Name Unknown Organization [facility] Address [address] [facility] [place] [address] Phone [phone] Care Team Providers Care Rack Puncher Name Role Phone Mary Ramos DO Primary Care Provider Reason for Visit * Reason Comments [facility] Return Encounter Details Date Type Department Care Team (Late st Contact Info) Description 11/15/2023 1:00 PM EDT Office Visit Gynecology/Obstetri [facility] [address] [facility] [place] [address] Mag[facility] [address] [facility] [place] [address] 37 weeks gestation of *; Maternal Crohn's disease affecting in third trimester (HCC); Encounter for supervision of other normal , unspecified trimester; Uterine synechiae; GBS (group B Streptococcus carrier), +RV culture, currently ; Leg swelling in in third trimester Allergies No known active allergiesdocumented as of this encounter (statuses as of 11/15/2023) Medications Medication Sig Dispensed Refills Start Date End Date Status 28-0.8 MG Oral Tablet Take by mouth. Active Breast PumpIndications:Encou nter for supervision of other normal , unspecified trimester For lactating mother to breastfeed. 1 Each 08/06/2023 Active documented as of this encounter (statuses as of 11/15/2023) Active Problems Problem Noted Date Diagnosed Date [...] or questions 11/15/2023 Susan Landers RN 11/15/2023 Medical marijuana use 05/22/2019 Crohn's disease of small intestine with complica tion 04/21/2019 Pelvic pain in female 10/22/2017 Moderate episode of recurrent major depressive d isorder 10/22/2017 Anxiety 10/22/2017 Crohn's colitis 01/25/2016 Headache Overview: ICD-10 update of inactive term Estimated Date of Delivery Comme nts Yes 12/02/2023 Based on last me nstrual period of 02/25/2023 documented as of this encounter (statuses as of 11/15/2023) Resolved Problems Problem Noted Date Diagnosed Date [...] as of this encounter (statuses as of 11/15/2023) Immunizations Name Administration Dates Next Due HPV [...] money to get more. Never true 07/20/2023 [place] Depression Scale Answer Date Recorded [place] Depression Scale Total 0 09/14/2023 The [...] Sign Reading Time Taken Comments Blood Pressure 104/66 11/15/2023 1:01 PM EDT Pulse - - Temperature - - Respiratory Rate - - Oxygen Saturation - - Inhaled Oxygen Concentration - - Weight 80.9 kg (178 lb 6.4 oz) 11/15/2023 1:01 P M EDT Height - - Body Mass Index 31.6 11/09/2023 1:47 PM EDT documented in this encounter Progress Notes * Magda Masters MD - 11/15/2023 1:14 PM EDT Tracy Porter is a 33 year old female here for her routine OB appointment at 37w4d.. Patientrefers that she is contributing because of a history of Crohn disease she is worried about perineal laceration. Patient was advised that who is the this alone is not indication for a . Mostly with Crohn's vaginal delivery without high-risk complications and the general population. It is reasonable for women with active disease that in women with active fistulizing disease, history of perineal surgery, perineal fistula, complex perineal lesions , history of j pouch surgery or scarring around the perineal area to have a c section. Additionally, the patient complains of bilateral leg swelling. She denies headaches, blurring of vision and epigastric pain. Her BP today is 104/66. Her Estimated Date of Delivery: 12/02/23 REVIEW OF SYSTEMS: She affirms movement. Denies vaginal bleeding, LOF, contractions, N/V, headaches [place] Depression Scale: No data recorded [place] suicide question and score: Score of 3 = Yes, quite often. Score of 2 = Sometimes. Score of 1 = Hardly ever No data recorded PHYSICAL EXAM: Filed Vitals: 11/15/23 1301 BP: 104/66 Weight: 80.9 kg (178 lb 6.4 oz) +FHT 156 bpm Fundal height 38 cm ASSESSMENT/PLAN: (O12.03) Leg swelling in in third trimester Plan: Legs swelling is physiological. No evidence of pre-eclampsia at this time. (O99.613, K50.90) Maternal Crohn's disease affecting in third trimester (HCC) Plan: Patient states that she is in remission. (O99.820) GBS (group B Streptococcus carrier), +RV culture, currently Plan: Patient will require GBS prophylaxis during labor (Z3A.37) 37 weeks gestation of (primary encounter diagnosis) Plan: - labor precautions and kick counts reviewed - RTO in 1 week Magda Masters MD * Sheila Murguia MED ASSIST - 11/15/2023 1:01 PM EDT 37w4d Swelling in hands and feet when walking around. Does keep feet elevated while working, pt works from home. Discuss plan today, delivering [facility] documented in this encounter Nursing Notes * Susan Landers RN - 11/15/2023 1:41 PM EDT Patient seen by [facility] Teacher. Patient denies any questions or concerns. documented in this encounter Plan of Treatment Upcoming Encounters Date Type Department Care Team (Late st Contact Info) Description 11/23/2023 2:45 PM EDT Imaging Radiology [facility] 2[facility] [address] [place] [address] 11/23/2023 3:30 PM EDT Office Visit Gynecology/Obstetrics [facility] [address] [place] [address] Violette Liao PA-C [address] [place] [address] [place] [address] Nurse Melquiades [facility] Return [facility] [address] [place] [address] 11/30/2023 2:15 PM EDT Office Visit Gynecology/Obstetrics [facility] [address] [place] [address] Amanda Coelho CRNP [address] [place] [address] Nurse Melquiades Healthy [facility] Return [facility] [address] [place] [address] 01/22/2024 11:40 AM EDT Office Visit Gastroenterology, [facility] [address] [place] [address] Jessica Sexton MD [address] [place] [address] Health Maintenance Due Date Last Done Comments [...] as of this encounter Visit Diagnoses Diagnosis 37 weeks gestation of - Primary state, incidental Maternal Crohn's disease affecting in third trimester ([facility]) Encounter for supervision of other normal , unspecified trimester Uterine synechiae Intrauterine synechiae GBS (group B Streptococcus carrier), +RV culture, currently Supervision of other high-risk Leg swelling in in third trimester documented in this encounter Care Teams Rack Puncher Relationship Specialty Start Date End Date Mary Ramos DO [address] [place] [address] PCP - General Family Medicine 09/22/16 documented as of this encounter
--- OUTSIDE RECORDS SUMMARY | 2023-12-01 09:52 | External Medical Summary ---
Author Name Unknown Address Unknown Organization K01:LABORATORY [facility] [place] [place] - [address] [place] [address] Laboratory Report Ordering Provider Test Date Status LOLIS STEPHENSON 09/14/2023 09:21:23 Final Observation Date Value Abnormality Reference (Units ) Status SYNC LEUKOCYTES IN BLOOD BY AUTOMATED COUNT 09/14/2023 09:21:23 9.75 4.00-10.80 (K/uL) Final Segs 09/14/2023 09:21:23 76.8 Above high normal 40.0-75.0 (%) Final Lymphs % 09/14/2023 09:21:23 15.6 Below low normal 18.0-42.0 (%) Final Monos 09/14/2023 09:21:23 5.9 1.0-11.0 (%) Final Eosinophils 09/14/2023 09:21:23 0.4 0.0-6.0 (%) Final Basos 09/14/2023 09:21:23 0.3 0.0-2.0 (%) Final Immature Granulocyte, Percent 09/14/2023 09:21:23 1.0 0.0-2.0 (%) Final Absolute Segs 09/14/2023 09:21:23 7.48 1.80-7.70 (K/uL) Final Lymphs, absolute 09/14/2023 09:21:23 1.52 1.00-4.80 (K/ul) Final Monos, Abs 09/14/2023 09:21:23 0.58 0.00-1.10 (K/uL) Final Eos, Abs 09/14/2023 09:21:23 0.04 0.00-0.70 (K/uL) Final Basos, Abs 09/14/2023 09:21:23 0.03 0.00-0.20 (K/uL) Final Immature Granulocytes, Number 09/14/2023 09:21:23 0.10 0.00-0.20 (K/uL) Final Performing Location LABORATORY [facility] [place] [place] - [address] [facility] [address]
--- OUTSIDE RECORDS SUMMARY | 2023-12-01 09:52 | External Medical Summary | Summary of Care ---
Author Name Unknown Organization [facility] Address [address] [facility] [place] [address] Phone [phone] Care Team Providers Care Sliver Lapper Name Role Phone Mary Ramos DO Primary Care Provider Reason for Visit * Reason Comments Return Visit Encounter Details Date Type Department Care Team (Late st Contact Info) Description 08/20/2023 4:15 PM EDT Office Visit Gynecology/Obstetri [facility]ith Arnett [address] [facility] [place] [address] Sharon Hearn PA-C [address] [place] [address] Nurse Melquiades [facility] Return Jennyfer [address] [place] [address] Encounter for supervision of other normal , [...] money to get more. Never true 07/20/2023 [place] Depression Scale Answer Date Recorded [place] Depression Scale Total 7 06/07/2022 The thought [...] Sign Reading Time Taken Comments Blood Pressure 102/60 08/20/2023 4:33 PM EDT Pulse - - Temperature - - Respiratory Rate - - Oxygen Saturation - - Inhaled Oxygen Concentration - - Weight 72 kg (158 lb 12.8 oz) 08/20/2023 4:33 PM EDT Height 160 cm (5' 3") 08/20/2023 4:33 PM EDT Body Mass Index 28.13 08/20/2023 4:33 PM EDT documented in this encounter Progress Notes * Sharon Hearn PA-C - 08/20/2023 4:48 PM EDT 25w1d Had Gastro follow for UC, currently doing well. Plans visit back next in third trimeter. Asking about Collagen supplement. Advised limited data for use in , likely no harm but again limited data. Pt states will just avoid. Reviewed third tri labs next visit and recommendation for TDaP vaccine. Denies VB, LOF, contractions. Has anterior placenta. Feeling baby move. RTC in 3 weeks Sharon Hearn PA-C documented in this encounter Nursing Notes * Susan Landers RN - 08/20/2023 4:33 PM EDT Patient here for SANNA visit 25w1d Pended 28 wk labs Susan Landers RN documented in this encounter Plan of Treatment Upcoming Encounters Date Type Department Care Team (Late st Contact Info) Description 09/14/2023 8:10 AM EDT Laboratory Laboratory, [facility] [address] [place] [address] Rajni Arnett [address] [facility] [place] [address] 09/14/2023 8:45 AM EDT [facility] [address] [place] [address] Sharon Hearn PA-C [address] [place] [address] Nurse Melquiades [facility] Return [facility] [address] [place] [address] 01/22/2024 11:40 AM EDT Office Visit Gastroenterology, [place] [facility] [address] [place] [address] Jessica Sexton MD [address] [place] [address] Scheduled Orders Name Type Priority Associated Diagnoses Orde r Schedule 50-G GESTATIONAL GLUCOSE, 1 HOUR Lab Routine Encounter for supervision of other normal , unspecified trimester Expected: 09/03/2023, Expires: 08/19/2024 SYPHILIS ANTIBODY SCREEN WITH REFLEX TO RPR Lab Routine Encounter for supervision of other normal , unspecified trimester Expected: 09/03/2023, Expires: 08/19/2024 CBC WITH WBC DIFFERENTIAL AND ANEMIA REFLEX WORKUP Lab Routine Encounter for supervision of other normal , unspecified trimester Expected: 09/03/2023, Expires: 08/19/2024 Health Maintenance Due Date Last Done Comments [...] synechiae documented in this encounter Care Teams Sliver Lapper Relationship Specialty Start Date End Date Mary Ramos DO [address] [place] [address] PCP - General Family Medicine 09/22/16 documented as of this encounter
--- OUTSIDE RECORDS SUMMARY | 2023-12-01 09:52 | External Medical Summary | Summary of Care ---
Author Name Unknown Organization [facility] Address [address] [place] [facility] [place] [address] Phone [phone] Care Team Providers Care Hybrid Tester Name Role Phone Mary Ramos DO Primary Care Provider Reason for Visit * Reason Comments Healthy Beginnings Return Encounter Details Date Type Department Care Team (Late st Contact Info) Description 10/26/2023 3:30 PM EDT Office Visit Gynecology/Obstetri meredith Arnett [address] [facility] [place] [address] Violette Liao PA-C [address] [place] [address] [place] [address] Nurse Aly Arnett Beginnings Return Jennyfer [address] [facility] [place] [address] Encounter for supervision of other normal , third trimester*; Maternal Crohn's disease affecting in third trimester (HCC); Uterine synechiae Allergies No known active allergiesdocumented as of this encounter (statuses as of 11/02/2023) Medications Medication Sig Dispensed Refills Start Date End Date Status 28-0.8 MG Oral Tablet Take by mouth. Active Breast PumpIndications:Encou nter for supervision of other normal , unspecified trimester For lactating mother to breastfeed. 1 Each 08/06/2023 Active documented as of this encounter (statuses as of 11/02/2023) Active Problems Problem Noted Date Diagnosed Date [...] as of this encounter (statuses as of 11/02/2023) Resolved Problems Problem Noted Date Diagnosed Date Resolved Date Supervision of normal first 08/07/2022 08/16/2022 Maternal Crohn's disease affecting 08/16/2022 Atypical squamous cell tgz es of undetermined significance (ASCUS) on cervical [...] as of this encounter (statuses as of 11/02/2023) Immunizations Name Administration Dates Next Due HPV [...] money to get more. Never true 07/20/2023 [place] Depression Scale Answer Date Recorded [place] Depression Scale Total 0 09/14/2023 The thought [...] PM EDT 34w5d Given labor instructions Had [facility] US today- 16%, COLETTE 17.7cm. documented in this encounter Plan of Treatment Upcoming Encounters Date Type Department Care Team (Late st Contact Info) Description 11/09/2023 1:30 PM EDT Office Visit Gynecology/Obstetrics [facility] [address] [place] [address] Sharon Hearn PA-C [address] [place] [address] Nurse Melquiades Healthy Beginning Return [facility] [address] [place] [address] 11/16/2023 8:15 AM EDT Office Visit Gynecology/Obstetrics Nara Becks [address] [place] [address] Abigail Jung CRNP [address] [place] [address] Nurse Melquiades Healthy [facility] Return [facility] [address] [place] [address] 11/23/2023 2:45 PM EDT Imaging Rad[facility] 2nd [facility] [address] [place] [address] 11/23/2023 3:30 PM EDT Office Visit Gynecology/Obstetrics [facility] [address] [place] [address] Violette Liao PA-C [address] [place], [place] [address], [place] [address] Nurse Melquiades Healthy Beginnings Return Jennyfer [address] [place] [address] 11/30/2023 2:15 PM EDT Office Visit Gynecology/Obstetrics [facility] [place] [address] Amanda Coelho CRNP [address] [place] [address] Nurse Melquiades Healthy Beginning Return Jennyfer [address] [place] [address] 01/22/2024 11:40 AM EDT [facility] [address] [place] [address] Jessica Sexton MD [address] [place] [address] Scheduled Orders Name Type Priority Associated Diagnoses [...] synechiae documented in this encounter Care Teams Hybrid Tester Relationship Specialty Start Date End Date Mary Ramos DO [address] [place] [address] PCP - General Family Medicine 09/22/16 documented as of this encounter
--- OUTSIDE RECORDS SUMMARY | 2023-12-01 09:52 | External Medical Summary | Summary of Care ---
Author Name Unknown Organization [facility] Address [address] [facility] [place] [address] Phone [phone] Care Team Providers Care Poultry Helper Name Role Phone Mary Ramos DO Primary Care Provider Reason for Visit * Reason Comments Healthy Beginnings Return Encounter Details Date Type Department Care Team (Late st Contact Info) Description 11/09/2023 1:30 PM EDT Office Visit Gynecology/Obstetri meredith Arnett [address] [facility] [place] [address] Sharon Hearn PA-C [address] [place] [address] Nurse Melquiades Healthy Beginnings Return Jennyfer [address] [place] [address] Encounter for supervision of other normal , unspecified trimester*; Uterine synechiae; Maternal Crohn's disease affecting in third trimester (HCC) Allergies No known active allergiesdocumented as of this encounter (statuses as of 11/09/2023) Medications Medication Sig Dispensed Refills Start Date End Date Status 28-0.8 MG Oral Tablet Take by mouth. Active Breast PumpIndications:Encou nter for supervision of other normal , unspecified trimester For lactating mother to breastfeed. 1 Each 08/06/2023 Active documented as of this encounter (statuses as of 11/09/2023) Active Problems Problem Noted Date Diagnosed Date [...] or questions 11/09/2023 Susan Landers RN 11/09/2023 Medical marijuana use 05/22/2019 Crohn's disease of small intestine with complica tion 04/21/2019 Pelvic pain in female 10/22/2017 Moderate episode of recurrent major depressive d isorder 10/22/2017 Anxiety 10/22/2017 Crohn's colitis 01/25/2016 Headache Overview: ICD-10 update of inactive term Estimated Date of Delivery Comme nts Yes 12/02/2023 Based on last me nstrual period of 02/25/2023 documented as of this encounter (statuses as of 11/09/2023) Resolved Problems Problem Noted Date Diagnosed Date [...] as of this encounter (statuses as of 11/09/2023) Immunizations Name Administration Dates Next Due HPV [...] money to get more. Never true 07/20/2023 [place] Depression Scale Answer Date Recorded [place] Depression Scale Total 0 09/14/2023 The thought [...] Sign Reading Time Taken Comments Blood Pressure 106/64 11/09/2023 1:47 PM EDT Pulse - - Temperature - - Respiratory Rate - - Oxygen Saturation - - Inhaled Oxygen Concentration - - Weight 80.4 kg (177 lb 3.2 oz) 11/09/2023 1:47 P M EDT Height 160 cm (5' 3") 11/09/2023 1:47 PM EDT Body Mass Index 31.39 11/09/2023 1:47 PM EDT documented in this encounter Progress Notes * Sharon Hearn PA-C - 11/09/2023 2:22 PM EDT 36w5d Due for GBS, collected. Denies VB, LOF, contractions. Baby is active. H/o Crohn's disease, currently well controlled. Pt states interested in discussing primary c/s as she has concerns regarding labor and vaginal delivery. Tearing during delivery requiring repair and affecting her Crohn's disease and rectum. 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 Would like to discuss further with physician. RTC in 1 week Sharon Hearn PA-C documented in this encounter Nursing Notes * Susan Landers RN - 11/09/2023 1:48 PM EDT Patient here for SANNA 36w5d + FM No concerns Patient seen by [facility] Profiler. Patient denies any questions or concerns. have you cut down with your smoking n/a have you quit n/a have you seen a flat finisher no have you seen a social media designer no are you receiving counseling no have you received dental care during your no are you enrolled in WIC yes do you receive food stamps or odonnell assistance no Susan Landers, RN documented in this encounter Plan of Treatment Upcoming Encounters Date Type Department Care Team (Late st Contact Info) Description 11/15/2023 1:00 PM EDT Office Visit Gynecology/Obstetrics [facility] [place] [address] Magda Masters MD [address] [facility] [place] [address] 11/23/2023 2:45 PM EDT Imaging Radiology [facility] 2nd [facility] [address] [place] [address] 11/23/2023 3:30 PM EDT Office Visit Gynecology/Obstetrics [facility] [place] [address] Violette Liao PA-C [address] [place] [address] [facility] [address] [place] [address] 11/30/2023 2:15 PM EDT Office Visit Gynecology/Obstetrics [facility] [address] [facility] [place] [address] Amanda Coelho CRNP [address] [place] [address] Nurse Aly Arnett [facility] [place] [address] 01/22/2024 11:40 AM EDT Office Visit Gastroenterology, [facility] [place] [address] Jessica Sexton MD [address] [place] [address] Pending Results Name Type Priority Associated Diagnoses Date /Time GROUP B STREP CULTURE/PCR Lab Routine Encounter for supervision of other normal , unspecified trimester 11/09/2023 2:27 PM EDT Scheduled Orders Name Type Priority Associated Diagnoses Orde r Schedule GROUP B STREP CULTURE/PCR Lab Routine Encounter for supervision of other normal , unspecified trimester Expected: 11/09/2023, Expires: 11/08/2024 Health Maintenance Due Date Last Done Comments [...] (HCC) documented in this encounter Care Teams Poultry Helper Relationship Specialty Start Date End Date Mary Ramos DO [address] [place], [place] [address] PCP - General Family Medicine 09/22/16 documented as of this encounter
--- OUTSIDE RECORDS SUMMARY | 2023-12-01 09:52 | External Medical Summary | Summary of Care ---
Author Name Unknown Organization [facility] Address [address] [place] [address] Phone [phone] Care Team Providers Care Rubber Cutter And Shape Carver Name Role Phone Mary Ramos DO Primary Care Provider Reason for Visit * Reason Comments Outpatient Testing Encounter Details Date Type Department Care Team (Late st Contact Info) Description 09/14/2023 8:20 AM EDT Laboratory Laboratory, [facility] 132 [place] [id number] [facility] [address] [place] [address] Encounter for supervision of other normal , unspecified trimester Allergies No known active allergiesdocumented as [...] any current needs or questions 09/14/2023 Susan Landers, JOZEF 09/14/2023 Medical marijuana use 05/22/2019 Crohn's disease [...] money to get more. Never true 07/20/2023 [place] Depression Scale Answer Date Recorded [place] Depression Scale Total 0 09/14/2023 The thought [...] 09/25/2023 8:30 AM EDT Office [facility] [address] [place] [address] Abigail Jung CRNP [address] [place] [address] Nurse [facility] [address] [place] [address] 10/12/2023 8:15 AM EDT Office Visit Gynecology/Obstetrics Nara [facility] [address] [place] [address] Abigail Jung CRNP [address] [place] [address] Nurse Aly Arnett [facility] Return [facility] [address] [place] [address] 01/22/2024 11:40 AM EDT [facility] [address] [place] [address] Jessica Sexton MD [address] [place] [address] Pending Results Name Type Priority Associated Diagnoses Date /Time 50-G GESTATIONAL GLUCOSE, 1 HOUR Lab Routine Encounter for supervision of other normal , unspecified trimester 09/14/2023 9:21 AM EDT SYPHILIS ANTIBODY SCREEN WITH REFLEX TO RPR Lab Routine Encounter for supervision of other normal , unspecified trimester 09/14/2023 9:21 AM EDT CBC WITH WBC DIFFERENTIAL AND ANEMIA REFLEX WORKUP Lab Routine Encounter for supervision of other normal , unspecified trimester 09/14/2023 9:21 AM EDT SYPHILIS ANTIBODY SCREEN Lab Routine Encounter for supervision of other normal , unspecified trimester 09/14/2023 9:21 AM EDT ANEMIA CBC Lab Routine Encounter for supervision of other normal , unspecified trimester 09/14/2023 9:21 AM EDT DIFFERENTIAL, AUTOMATED Lab Routine Encounter for supervision of other normal , unspecified trimester 09/14/2023 9:21 AM EDT ANEMIA REFLEX CHEMISTRY HOLD Lab Routine Encounter for supervision of other normal , unspecified trimester 09/14/2023 9:21 AM EDT Health Maintenance Due Date Last Done Comments Hepatitis B (1 of 3 - 19+ 3-dose series) 2008 COVID-19 Vaccine ( season) 2022 Influenza Vaccine (FLU shot) (Season [...] supervision of other normal , unspecified trimester documented in this encounter Care Teams Rubber Cutter And Shape Carver Relationship Specialty Start Date End Date Mary Ramos DO [address] [place] [address] PCP - General Family Medicine 09/22/16 documented as of this encounter
--- OUTSIDE RECORDS SUMMARY | 2023-12-01 09:52 | External Medical Summary | Summary of Care ---
Author Name Unknown Organization [facility] Address [address] [facility] [place] [address] Phone [phone] Care Team Providers Care Lab Systems Analyst Name Role Phone Mary Ramos DO Primary Care Provider Reason for Visit * Reason Comments Return Visit Encounter Details Date Type Department Care Team (Late st Contact Info) Description 08/20/2023 4:15 PM EDT Office Visit Gynecology/Obstetri meredith Arnett [address] [facility] [place] [address] Sharon Hearn PA-C [address] [place] [address] Nurse Melquiades Healthy Beginnings Return Jennyfer [address] [place] [address] Encounter for supervision of other normal , unspecified trimester*; Uterine synechiae Allergies No known active allergiesdocumented as of this encounter (statuses as of 08/21/2023) Medications Medication Sig Dispensed Refills Start Date End Date Status 28-0.8 MG Oral Tablet Take by mouth. 0 Active Breast PumpIndications:Encou nter for supervision of other normal , unspecified trimester For lactating mother to breastfeed. 1 Each 0 08/06/2023 Active documented as of this encounter (statuses as of 08/21/2023) Active Problems Problem Noted Date Diagnosed Date [...] or questions 08/21/2023 Susan Landers RN 08/21/2023 Medical marijuana use 05/22/2019 Crohn's disease of small intestine with complica tion 04/21/2019 Pelvic pain in female 10/22/2017 Moderate episode of recurrent major depressive d isorder 10/22/2017 Anxiety 10/22/2017 Crohn's colitis 01/25/2016 Headache Overview: ICD-10 update of inactive term Estimated Date of Delivery Comme nts Yes 12/02/2023 Based on last me nstrual period of 02/25/2023 documented as of this encounter (statuses as of 08/21/2023) Resolved Problems Problem Noted Date Diagnosed Date [...] as of this encounter (statuses as of 08/21/2023) Immunizations Name Administration Dates Next Due HPV [...] money to get more. Never true 07/20/2023 [place] Depression Scale Answer Date Recorded [place] Depression Scale Total 7 06/07/2022 The thought [...] Nursing Notes * Susan Landers RN - 08/21/2023 5:15 PM EDT Patient seen by [facility] Automotive Heavy Mechanic. Patient denies any questions or concerns. * Susan Landers RN - 08/20/2023 4:33 PM EDT Patient here for SANNA visit 25w1d Pended 28 wk labs Susan Landers, RN documented in this encounter Plan of Treatment Upcoming Encounters Date Type Department Care Team (Late st Contact Info) Description 09/14/2023 8:20 AM EDT Laboratory Laboratory, [facility] [address] [facility] [place] [address] Rajni Arnett [facility] [place] [address] 09/14/2023 8:45 AM EDT Office Visit Gynecology/Obstetrics [facility] [address] [facility] [place] [address] Sharon Hearn PA-C [address] [place] [address] Nurse Melquiades Healthy Beginnings Return [facility] [address] [place] [address] 01/22/2024 11:40 AM EDT Office Visit Gastroenterology, [facility] [address] [place] [address] Jessica Sexton MD [address] [place] [address] Scheduled Orders Name Type Priority Associated Diagnoses [...] synechiae documented in this encounter Care Teams Lab Systems Analyst Relationship Specialty Start Date End Date Mary Ramos DO [address] [place] [address] PCP - General Family Medicine 09/22/16 documented as of this encounter
--- OUTSIDE RECORDS SUMMARY | 2023-12-01 09:52 | External Medical Summary ---
Author Name Unknown Address Unknown Organization K01:LABORATORY [facility] [place] [address] Laboratory Report Ordering Provider Test Date Status LOLIS STEPHENSON 09/14/2023 09:21:23 Final Observation Date Value Abnormality Reference (Units ) Status WBC, Total 09/14/2023 09:21:23 9.75 4.00-10.8 0 (K/uL) Final RBC 09/14/2023 09:21:23 4.48 3.85-5.15 (M/uL) Final Hemoglobin 09/14/2023 09:21:23 12.3 12.0-15.3 (g/dL) Final Anemia reflex testing trigge rs on a HGB < 12.0 for Females and HGB < 13.0 for Males in accordance with the WHO Anemia Guidelines
Anemia reflex testing triggers on a HGB < 12.0 for Females and HGB < 13.0 for Males in accordance with the WHO Anemia Guidelines HCT 09/14/2023 09:21:23 38.0 36.0-45.2 (%) Final MCV 09/14/2023 09:21:23 84.8 81.5-97.5 (fL) Final MCH 09/14/2023 09:21:23 27.5 27.0-34.0 (pg) Final MCHC 09/14/2023 09:21:23 32.4 32.0-36.0 (g/dL) Final RDW 09/14/2023 09:21:23 14.2 11.5-15.5 (%) Final Platelets 09/14/2023 09:21:23 188 140-400 (K /uL) Final MPV 09/14/2023 09:21:23 12.2 6.6-11.1 ( fL) Final Nucleated erythrocytes/100 leukocytes [Ratio] in Blood by Automated count 09/14/2023 09:21:23 0 <=0 (/100 WBCs) Fi nal Performing Location LABORATORY C - [address] [place] [address]
--- OUTSIDE RECORDS SUMMARY | 2023-12-01 09:52 | External Medical Summary ---
Author Name Unknown Address Unknown Organization : Laboratory Report Ordering Provider Test Date Status MELBA GARCIA 08/20/2023 16:01:00 Final Observation Date Value Abnormality Reference (Units ) Status Calprotectin [Mass/mass] in Stool 08/20/2023 16:01:00 67 (mcg/g) Final Reference Range:
<50 N ormal
50-120 Borderline
>120 Elevated
Calprotectin in Crohn's disease and ulcerative
colitis can be five to several thousand times
above the reference population (50 mcg/g or less).
Levels are usually 50 mcg/g or less in healthy
patients and with irritable bowel syndrome. Repeat
testing in 4-6 weeks is suggested for borderline
values.
Test performed by [facility]
[address],
[place] [address]

Deep Fryer Assembler: Tomeka Mccarty MD,PHD,ERNESTO
Test Rep[facility] by [facility],
[facility],
[address] [place], [place]
Jace Verma M.D., Ph.D., Director of Laboratories
, JOSEFINA [id number] Performing Location
--- OUTSIDE RECORDS SUMMARY | 2023-12-01 09:53 | External Medical Summary | Summary of Care ---
Author Name Unknown Organization [facility] Address [address] [facility] [place] [address] Phone [phone] Care Team Providers Care Manufacturing Coordinator Name Role Phone Mary Ramos DO Primary Care Provider Reason for Visit * Reason Comments Return Visit Encounter Details Date Type Department Care Team (Late st Contact Info) Description 06/15/2023 2:15 PM EST Office Visit Gynecology/Obstetri meredith Arnett [address] [facility] [place] [address] Amanda Coelho CRNP [address] [place] [address] Nurse Aly Arnett Beginnings Return Jennyfer [address] [place] [address] Encounter for supervision of other normal , [...] or questions 05/18/2023 Susan Landers, JOZEF 05/18/2023 Medical marijuana use 05/22/2019 Crohn's disease of [...] have money to get more. Patient declined [place] Depression Scale Answer Date Recorded [place] Depression Scale Total 7 06/07/2022 The thought [...] Team (Late st Contact Info) Description 06/15/2023 2:50 PM EST Laboratory [facility] [address] [phone] Rajni Arnett [address] [place] [address] Arrived 07/20/2023 9:45 AM EDT Imaging Radiology [facility] [address] [facility] [place] [address] 08/07/2023 4:00 PM EDT Office Visit Gastroenterology, [facility] [address] [place] [address] Jessica Sexton MD [address] [place] [address] Pending Results Name Type Priority Associated Diagnoses [...] 2008 Depression Screening 01/12/2018 01/12/2017 COVID-19 Vaccine (2022- season) 2022 [...] synechiae documented in this encounter Care Teams Manufacturing Coordinator Relationship Specialty Start Date End Date Mary Ramos DO [address] [place] [address] PCP - General Family Medicine 09/22/16 documented as of this encounter
--- OUTSIDE RECORDS SUMMARY | 2023-12-01 09:53 | External Medical Summary | Summary of Care ---
Author Name Unknown Organization [facility] Address [address] [facility] [place] [address] Phone [phone] Care Team Providers Care Curator Of Photography And Prints Name Role Phone Mary Ramos DO Primary Care Provider Reason for Visit * Reason Comments Return Visit Encounter Details Date Type Department Care Team (Late st Contact Info) Description 06/15/2023 2:15 PM EST Office Visit Gynecology/Obstetri meredith Arnett [address] [facility] [place] [address] Amanda Coelho CRNP [address] [place] [address] Nurse Aly Arnett Beginnings Return Jennyfer [address] [facility] [place] [address] Encounter for supervision of other normal , [...] have money to get more. Patient declined [place] Depression Scale Answer Date Recorded [place] Depression Scale Total 7 06/07/2022 The thought [...] Description 07/20/2023 9:45 AM EDT Imaging Radiology [facility] [address] [address] 07/20/2023 11:15 AM EDT Office Visit Gynecology/Obstetrics [facility] [address] [place] [address] Sharon Hearn PA-C [address] [place] [address] Nurse Melquiades Healthy Beginnings Return Jennyfer [address] [place] [address] 08/07/2023 4:00 PM EDT Office Visit Gastroenterology, [facility] [address] [place] [address] Jessica Sexton MD [address] [place] [address] Pending Results Name Type Priority Associated Diagnoses [...] synechiae documented in this encounter Care Teams Curator Of Photography And Prints Relationship Specialty Start Date End Date Mary Ramos DO [address] [place] [address] PCP - General Family Medicine 09/22/16 documented as of this encounter
--- OUTSIDE RECORDS SUMMARY | 2023-12-01 09:53 | External Medical Summary ---
Author Name Unknown Address Unknown Organization : Laboratory Report Ordering Provider Test Date Status TIN MINA 06/15/2023 14:46:24 Final Observation Date Value Abnormality Reference (Units ) Status INTERPRETATION 06/15/2023 14:46:24 SEE BELOW Final Screen negative for open NTD . RISK FOR ONTD 06/15/2023 14:46:24 <1:5000 Final CALC'D GESTATIONAL AGE 0306/15/2023 14:46:24 15.7 Final AFP, SERUM 06/15/2023 14:46:24 33.6 (ng/mL) Final AFP MOM 06/15/2023 14:46:24 1.04 Final Reference Range:
NTD <2 .50
IDD <1.90
TWINS <4.00
TWINS IDD <3.50
TRIPLETS <4.50
The AFP test result indicates that this patient is
screen negative for open NTD. It should be noted
that normal test results can never guarantee the
of a normal baby and that 2-3% of newborns
have some type of physical or mental defect, many
of which are undetectable through any known
diagnostic technique.
This is a screening test, not a diagnostic test.
This risk assessment report is based in part on
demographic data provided by the ordering
physician. Please notify the laboratory promptly
if any data are incorrect. For assistance with
recalculations, please call your local [facility] laboratory. For assistance with
interpretation of these results, please contact
your Local [facility] genetic counselor or
call [phone] ([phone]).
Interpretive Cutoffs
Screen Positive for Open NTD:
> or = 2.50 adjusted MOM
> or = 1.90 adjusted MOM for insulin- dependent diabetics
> or = 4.00 adjusted MOM for twins
> or = 3.50 adjusted MOM for twins insulin-dependent diabetics
> or = 4.50 adjusted MOM for triplets
For additional information, please refer to
[email or web address]/faq/ZSL62z2
(This link is being provided for
informational/educational purposes only.) DATE OF 06/15/2023 14:46:24 1990 Final COLLECTION DATE 06/15/2023 14:46:24 06/15/2023 Final MATERNAL WEIGHT 06/15/2023 14:46:24 150 (lbs ) Final EST'D DATE OF DELIVERY 06/15/2023 14:46:24 12/02/2023 Final QUE DETERMINED BY 06/15/2023 14:46:24 LMP Final MOTHER'S ETHNIC ORIGIN 06/15/2023 14:46:24 WHITE Final NUMBER OF FETUSES 06/15/2023 14:46:24 1 Final INSULIN DEPEND DIABETIC 06/15/2023 14:46:24 N Final REPEAT SPECIMEN 06/15/2023 14:46:24 N Final HX OF NEURAL TUBE DEFECTS 06/15/2023 14:46:24 N Final PREV DOWN SYND 06/15/2023 14:46:24 N Final DONOR EGG 06/15/2023 14:46:24 N Final DONOR AGE: EGG RETRIEVAL 06/15/2023 14:46:24 NOT GIVEN Final Test performed by [facility]
[address],
[place] [address]

Cigar Packer And Sorter: Tomeka Mccarty MD,PHD,ERNESTO
Test Reported by Katie Molina,
[facility],
[address] [place], [place]
Jace Verma M.D., Ph.D., Director of Laboratories
, [facility] [id number] Performing Location
--- OUTSIDE RECORDS SUMMARY | 2023-12-01 09:53 | External Medical Summary | Summary of Care ---
Author Name Unknown Organization [facility] Address [address] [facility] [address] Phone [phone] Care Team Providers Care Steam Drier Operator Name Role Phone Mary Ramos DO Primary Care Provider Reason for Visit * Reason Comments Outpatient Testing Encounter Details Date Type Department Care Team (Late st Contact Info) Description 06/15/2023 2:50 PM EST Laboratory Laboratory, [facility] [address] [phone] [facility] [address] [place] [address] Arrived Allergies No known active allergiesdocumented as of [...] Administration Dates Next Due HPV Vaccine, 4-Valent 04/28/2009,12/24/2008,070 05/2008 TDAP (age 10 and older)(Boostrix) 04/21/2019 [...] have money to get more. Patient declined [facility] Anthony Depression Scale Answer Date Recorded [place] Anthony Depression Scale Total 7 06/07/2022 The thought [...] Description 07/20/2023 9:45 AM EDT Imaging Radiology [facility] [address] [facility] [place] [address] 07/20/2023 11:15 AM EDT Office Visit Gynecology/Obstetrics [address] [place] [id number] Sharon Hearn PA-C [address] [place] [address] Nurse Melquiades [facility] [address] [place] [address] 08/07/2023 4:00 PM EDT Office Visit Gastroenterology, [facility] [address] [place] [phone] Jessica Sexton MD [address] [place] [address] Health Maintenance Due Date Last Done Comments Hepatitis B (1 of 3 - 19+ 3-dose series) 2008 Depression Screening 01/12/2018 01/12/2017 COVID-19 Vaccine ( - 2022-24 [...] Not on filedocumented as of this encounter Care Teams Steam Drier Operator Relationship Specialty Start Date End Date Mary Ramos DO [address] [place] [address] PCP - General Family Medicine 09/22/16 documented as of this encounter
[2023-12-01] MEDS: LACTATED RINGER'S 1,000 ML IV PRN (10:57)
[2023-12-01] MEDS ORDERED: LIDOCAINE 1% LOCAL 20 ML VIAL INFIL PRN (11:02)
[2023-12-01] MEDS: BUTORPHANOL TARTRATE 2 MG/ML VIAL IV ONE (11:15)
[2023-12-01 11:33] LABS: Hematocrit (blood only) 38.5 % (37.0-47.0); Hemoglobin 12.6 g/dl (12.0-16.0); Mean Corpuscular Hgb Conc 32.7 g/dL (32.0-36.0); Mean Corpuscular Volume 79.4 fL (80.0-100.0); Mean Platelet Volume 11.2 fL (9.4-12.4); Platelet Count 152 K/uL (130-400); RDW Coefficient of Variation 13.5 % (11.5-14.5); RDW Standard Deviation 38.3 fL (36.4-46.3); Red Blood Count 4.85 M/uL (4.20-5.40); White Blood Count 12.27 K/ul (4.8-10.8)
[2023-12-01] MEDS: PENICILLIN GK 6 MU in DEXTROSE 5% 250 ML IV STA (11:42)
--- NOTE | 2023-12-01 11:50 | Anesthesiology Consultation ---
Date of Service December 01, 2023 Assessment & Plan (1) Encounter for pre-operative examination: Chart Review Chart Review: Acceptable Risk for Labor Epidural History Height/Weight Height: 5 ft 3 in Weight: 82.1 kg Allergies Allergy/AdvReac Type Severity Reaction Status Date / Time No Known Allergies Allergy Verified 01/08/20 17:14 Medications Home Medications Medication Instructions Recorded Confirmed Last Taken calcium carbonate 500 mg PO DAILY 12/01/23 12/01/23 1 Day Ago ~11/30/23 vit no.95-ferrous 1 tab PO DAILY 12/01/23 12/01/23 1 Day Ago fumarate 28 mg-folic acid 800 mcg ~11/30/23 tablet () Active Medications Generic Name Dose Route Start Last Admin Trade Name Freq PRN Reason Stop Dose Admin Lactated Ringer's 1,000 mls @ 125 mls/hr 12/01/23 11:02 12/01/23 10:57 Lr IV 12/03/23 11:01 999 mls/hr .Q8H PRN Administration L&D Protocol Protocol Penicillin G Potassium 6 mu/ 262 mls @ 262 mls/hr 12/01/23 11:10 12/01/23 11:42 Dextrose IV 12/01/23 12:09 262 mls/hr NOW STA Administration Past Medical History Medical History (Updated 12/01/23 @ 12:00 by Italo Betancourt MD) Marijuana abuse Crohn disease Past Family History Family History Other No pertinent family history in first degree relatives Past Surgical History Surgical History (Updated 12/01/23 @ 12:00 by Italo Betancourt MD) Hx of dilation and curettage Social History Smoking Status: Never smoker Hx Alcohol Use: No Hx Substance Use: Yes (Quit January 2023, Medical Marijuana) substance use type: marijuana Physical Exam Vital Signs Last Vital Signs Temp 36.7 C 12/01/23 09:55 Pulse 69 12/01/23 09:53 Resp 16 12/01/23 09:55 BP 122/77 12/01/23 09:53 Testing Laboratory Results 12/01/23 11:14
[2023-12-01] MEDS: fentANYL 2 MCG/ML BUPIVacaine 0.125%-NSS 100ML BAG ONE (12:18)
[2023-12-01] MEDS: fentaNYL citrate PF 100 MCG/2 ML VIAL ONE (12:18)
[2023-12-01] MEDS: BUPIVACAINE 0.25% PF 30 ML VIAL ONE (12:18)
[2023-12-01] MEDS ORDERED: fentaNYL citrate PF 100 MCG/2 ML VIAL EPI PRN (12:21)
[2023-12-01] MEDS ORDERED: ROPIVACAINE 0.5% PF 5 MG/ML 20 ML VIAL EPI PRN (12:21)
[2023-12-01] MEDS ORDERED: LIDOCAINE 2% MPF LOCAL 5 ML VIAL EPI PRN (12:21)
[2023-12-01] MEDS ORDERED: BUPIVACAINE 0.25% PF 30 ML VIAL EPI PRN (12:21)
[2023-12-01] MEDS ORDERED: SODIUM CHLORIDE 0.9% PF INJ 10 ML VIAL EPI PRN (12:21)
[2023-12-01] MEDS ORDERED: ePHEDrine sulfate 50 MG/ML AMP IV PRN (12:21)
[2023-12-01] MEDS ORDERED: NALOXONE HCL 0.4 MG/1 ML VIAL/CARP IV PRN (12:21)
[2023-12-01] MEDS ORDERED: ONDANSETRON INJ 2 MG/ML 2 ML VIAL IV PRN (12:21)
[2023-12-01] MEDS ORDERED: NALOXONE HCL 1 MG in SODIUM CHLORIDE 0.9% 1,000 ML IV PRN (12:21)
[2023-12-01] MEDS: LIDOCAINE 2%/EPINEPHRINE 1:200,000 20 ML PF ONE (12:39)
[2023-12-01] MEDS: PENICILLIN GK 3 MU in DEXTROSE 5% 100 ML IV SCH (15:55)
[2023-12-01] MEDS: OXYTOCIN 30 UNITS/NSS 30 UNITS/500 ML BAG IV PRN (17:38)
[2023-12-01] MEDS: fentANYL 2 MCG/ML BUPIVacaine 0.125%-NSS 100ML BAG EPI PRN (18:58)
[2023-12-01] MEDS: fentaNYL citrate PF 100 MCG/2 ML VIAL EPI STA (20:18)
[2023-12-01] MEDS: LIDOCAINE 2%/EPINEPHRINE 1:200,000 20 ML PF EPI STA (20:18)
[2023-12-01] MEDS: SODIUM CHLORIDE 0.9% PF INJ 10 ML VIAL EPI STA (20:18)
[2023-12-01] MEDS: ePHEDrine sulfate 50 MG/ML AMP ONE (20:18)
[2023-12-01] MEDS: SODIUM CHLORIDE 0.9% PF INJ 10 ML VIAL ONE (20:18)
[2023-12-01] MEDS: BUPIVACAINE 0.25% PF 30 ML VIAL EPI STA (20:18)
[2023-12-01] MEDS: CALCIUM CARBONATE 500 MG CHEWABLE TAB PO PRN (21:01)
[2023-12-01] MEDS ORDERED: NURSING L&D Epidural Breakthrough Pain Update ONE (23:40)
[2023-12-02] MEDS ORDERED: HYDROCORTISONE ACETATE 25 MG SUPP PR PRN (00:04)
[2023-12-02] MEDS ORDERED: OXYTOCIN 30 UNITS/NSS 30 UNITS/500 ML BAG IV PRN (00:04)
[2023-12-02] MEDS ORDERED: ACETAMINOPHEN 325 MG TAB PO PRN (00:04)
[2023-12-02] MEDS: OXYTOCIN 30 UNITS/NSS 30 UNITS/500 ML BAG IV PRN (00:08)
--- NOTE | 2023-12-02 00:11 | Delivery Summary ---
Vaginal Delivery Summary Date of Service December 02, 2023 Vaginal Delivery Summary Patient is a 3 para 1 admitted in active labor at 39 weeks 6 days gestation. On admission she rated her contraction pain a 9 out of 10 her cervix was 4 cm dilated. She also was beta strep positive. She was given epidural for pain control shortly after admission. Was also started on penicillin. We waited until she got her second dose of penicillin and then ruptured her membranes. And augmented her contraction with IV Pitocin. Patient showed slow steady progress of bringing the head down. And then pushed for approximately 3 hours pushed out a live female infant via direct occiput anterior position over an intact perineum infant was suctioned through the mouth and the nose. Shoulders were delivered without difficulty. The cord was allowed to pulse for 1 minute. Then clamped and cut by the father. Cord blood was taken. We had difficulty removing the placenta we used Pitocin to contract the uterus along with fundal pressure however eventually I had to do a manual removal placement and into the uterine cavity and sweep the placenta away from the side and remove it this was done after 2 attempts and the placenta was removed in 1 piece. Following this inspection of the perineum revealed a second-degree laceration. There was a right-sided sulcus laceration which was repaired by approximating the vaginal mucosa out to beyond the hymenal ring. A deep suture was used to a pproximate the bulbocavernosus muscle. Second deep sutures used approximate the perineal body. Another suture was used to approximate the rectal sphincter capsular area. Following this a running subcuticular sutures used approximate the perineal skin edges. IM Methergine was also given to contract the uterus. Calculated blood loss was 770 mL.
[2023-12-02] MEDS: ACETAMINOPHEN W/CODEINE #3 1 TAB PO PRN (00:34)
[2023-12-02] MEDS: BENZOCAINE 20% SPRY 85 APPLN/85 GM CAN EXT PRN (00:39)
[2023-12-02] MEDS: METHYLERGONOVINE MALEATE 0.2 MG/ML AMP IM ONE (00:39)
[2023-12-02] MEDS: DIPHTHER/TETAN/PERTUS Vaccine (Tdap, Adol/Adult) 0.5mL IM ONE (00:41)
--- NOTE | 2023-12-02 09:25 | Anesthesia Procedure Note ---
Date of Service December 02, 2023 Anesthesia Post Epidural Note Vital Signs Vital Signs: Temp Pulse Resp BP Pulse Ox O2 Del Method 36.9 C 79 18 102/68 99 Room Air 12/02/23 05:10 12/02/23 05:10 12/02/23 05:10 12/02/23 05:10 12/02/23 05:10 12/02/23 05:10 Pain Intensity Right Back: Pain Intensity: 6 Vaginal: Pain Intensity: 8 Notes Mental Status: alert / awake / arousable and participated in evaluation Nausea / Vomiting: adequately controlled Pain: adequately controlled Airway Patency, RR, SpO2: stable & adequate BP & HR: stable & adequate Hydration State: stable & adequate Neuraxial Anesthesia: was administered and sensory block is resolving Anesthetic Complications: no major complications apparent Epidural: Removed without complications and With tip intact
--- NOTE | 2023-12-02 09:45 | Obstetrical Progress Note ---
Date of Service December 02, 2023 Assessment & Plan Admission and Anticipated Discharge Date Admission Date: December 01, 2023 OB Progress Note abdomen soft and non tender no calf tenderness ambulating with difficulty Results & Data Vital Signs (Past 12 Hours) Vital Signs Temp Pulse Pulse Resp BP BP Pulse Ox 12/02/23 05:10 36.9 C 79 18 102/68 99 12/02/23 02:01 80 105/57 L 12/02/23 02:00 36.8 C 18 12/02/23 01:44 79 106/57 L 12/02/23 01:30 36.6 C 18 12/02/23 01:27 88 149/82 H 12/02/23 01:13 80 152/83 H 12/02/23 01:00 36.6 C 18 12/02/23 00:57 80 124/70 12/02/23 00:45 36.6 C 18 12/02/23 00:42 82 142/75 H 12/02/23 00:30 36.6 C 18 12/02/23 00:28 85 141/73 H 12/02/23 00:15 36.6 C 18 12/02/23 00:13 85 138/66 12/02/23 00:02 93 H 100 12/02/23 00:00 36.6 C 18 12/01/23 23:57 81 L 12/01/23 23:57 102 H 12/01/23 23:57 137/69 12/01/23 23:52 99 12/01/23 23:52 88 12/01/23 23:47 100 12/01/23 23:47 87 12/01/23 23:45 89 12/01/23 23:45 137/76 12/01/23 23:42 100 12/01/23 23:42 98 H 12/01/23 23:37 100 12/01/23 23:37 117 H 12/01/23 23:32 100 12/01/23 23:32 107 H 12/01/23 23:27 100 12/01/23 23:27 91 H 12/01/23 23:22 100 12/01/23 23:22 92 H 12/01/23 23:17 97 12/01/23 23:17 96 H 12/01/23 23:15 101 H 12/01/23 23:15 125/100 12/01/23 23:12 99 12/01/23 23:12 132 H 12/01/23 23:07 100 12/01/23 23:07 98 H 12/01/23 23:02 99 12/01/23 23:02 106 H 12/01/23 23:00 90 12/01/23 23:00 120/91 12/01/23 22:57 100 12/01/23 22:57 106 H 12/01/23 22:52 99 12/01/23 22:52 94 H 12/01/23 22:47 99 12/01/23 22:47 94 H 12/01/23 22:46 87 L 12/01/23 22:46 104 H 12/01/23 22:45 18 12/01/23 22:45 36.9 C 18 12/01/23 22:42 98 12/01/23 22:42 91 H 12/01/23 22:37 99 12/01/23 22:37 103 H 12/01/23 22:35 85 L 12/01/23 22:35 118 H 12/01/23 22:32 100 12/01/23 22:32 90 12/01/23 22:30 90 12/01/23 22:30 119/68 12/01/23 22:29 83 L 12/01/23 22:29 90 12/01/23 22:27 99 12/01/23 22:27 91 H 12/01/23 22:22 98 12/01/23 22:22 93 H 12/01/23 22:17 100 12/01/23 22:17 95 H 12/01/23 22:14 101 H 12/01/23 22:14 120/72 12/01/23 22:12 100 12/01/23 22:12 90 12/01/23 22:07 97 12/01/23 22:07 103 H 12/01/23 22:04 92 12/01/23 22:04 116 H 12/01/23 22:02 100 12/01/23 22:02 84 12/01/23 21:57 98 12/01/23 21:57 92 H 12/01/23 21:52 87 L 12/01/23 21:52 88 12/01/23 21:48 90 12/01/23 21:48 77 12/01/23 21:47 99 12/01/23 21:47 76 O2 Del Method 12/02/23 05:10 Room Air 12/02/23 02:01 12/02/23 02:00 12/02/23 01:44 12/02/23 01:30 12/02/23 01:27 12/02/23 01:13 12/02/23 01:00 12/02/23 00:57 12/02/23 00:45 12/02/23 00:42 12/02/23 00:30 12/02/23 00:28 12/02/23 00:15 12/02/23 00:13 12/02/23 00:02 12/02/23 00:00 12/01/23 23:57 12/01/23 23:57 12/01/23 23:57 12/01/23 23:52 12/01/23 23:52 12/01/23 23:47 12/01/23 23:47 12/01/23 23:45 12/01/23 23:45 12/01/23 23:42 12/01/23 23:42 12/01/23 23:37 12/01/23 23:37 12/01/23 23:32 12/01/23 23:32 12/01/23 23:27 12/01/23 23:27 12/01/23 23:22 12/01/23 23:22 12/01/23 23:17 12/01/23 23:17 12/01/23 23:15 12/01/23 23:15 12/01/23 23:12 12/01/23 23:12 12/01/23 23:07 12/01/23 23:07 12/01/23 23:02 12/01/23 23:02 12/01/23 23:00 12/01/23 23:00 12/01/23 22:57 12/01/23 22:57 12/01/23 22:52 12/01/23 22:52 12/01/23 22:47 12/01/23 22:47 12/01/23 22:46 12/01/23 22:46 12/01/23 22:45 12/01/23 22:45 12/01/23 22:42 12/01/23 22:42 12/01/23 22:37 12/01/23 22:37 12/01/23 22:35 12/01/23 22:35 12/01/23 22:32 12/01/23 22:32 12/01/23 22:30 12/01/23 22:30 12/01/23 22:29 12/01/23 22:29 12/01/23 22:27 12/01/23 22:27 12/01/23 22:22 12/01/23 22:22 12/01/23 22:17 12/01/23 22:17 12/01/23 22:14 12/01/23 22:14 12/01/23 22:12 12/01/23 22:12 12/01/23 22:07 12/01/23 22:07 12/01/23 22:04 12/01/23 22:04 12/01/23 22:02 12/01/23 22:02 12/01/23 21:57 12/01/23 21:57 12/01/23 21:52 12/01/23 21:52 12/01/23 21:48 12/01/23 21:48 12/01/23 21:47 12/01/23 21:47
[2023-12-02 10:12] LABS: Hematocrit (blood only) 28.4 % (37.0-47.0); Hemoglobin 9.4 g/dl (12.0-16.0)
[2023-12-02] MEDS: DOCUSATE SODIUM 100 MG CAP PO SCH (11:46)
[2023-12-02] MEDS: PRENATAL VITAMIN 1 TAB PO SCH (11:46)
[2023-12-02] MEDS: oxyCODONE/ACETAMINOPHEN 5mg/325mg TAB PO PRN (16:20)
[2023-12-02 19:42] VITALS: RESP 16; O2SAT 97
[2023-12-03 06:41] LABS: Hematocrit (blood only) 23.2 % (37.0-47.0); Hemoglobin 7.6 g/dl (12.0-16.0); Mean Corpuscular Hemoglobin 26.8 pg (25.0-34.0); Mean Corpuscular Hgb Conc 32.8 g/dL (32.0-36.0); Mean Corpuscular Volume 81.7 fL (80.0-100.0); Mean Platelet Volume 10.6 fL (9.4-12.4); Platelet Count 121 K/uL (130-400); RDW Coefficient of Variation 13.7 % (11.5-14.5); RDW Standard Deviation 40.7 fL (36.4-46.3); Red Blood Count 2.84 M/uL (4.20-5.40); White Blood Count 19.09 K/ul (4.8-10.8)
[2023-12-03 10:20] VITALS: BP 107/71; PULSE 81; TEMP 97.9
--- NOTE | 2023-12-03 10:38 | Obstetrical Progress Note ---
Date of Service December 03, 2023 Subjective Ambulation: ambulating normally Voiding: no voiding problems Passing Gas:: Yes Diet Tolerance:: regular diet Lochia:: Small Feeding Type:: breast feeding Current Pain Level(1-10): 0 doing well Physical Exam Constitutional WD/WN, vitals as above Gastrointestinal (Abdomen) Inspection/Auscultation: abdomen normal to inspection abdomen soft and non-tender Musculoskeletal Extremities: extremities normal to inspection Skin no rashes, warm and dry Neurologic patellar DTR's 2+ bilat, sensation intact Psychiatric A+Ox3, euthymic affect Results & Data Vital Signs (Past 12 Hours) Vital Signs Temp Pulse Resp BP Pulse Ox O2 Del Method 12/03/23 09:00 36.6 C 81 16 107/71 Room Air 12/02/23 23:50 36.5 C 90 16 108/72 97 Room Air Laboratory Results Laboratory Results - last 72 hr 12/01/23 12/02/23 12/03/23 11:14 09:53 05:58 WBC 12.27 H 19.09 H RBC 4.85 2.84 L Hgb 12.6 9.4 L D 7.6 L Hct 38.5 28.4 L 23.2 L MCV 79.4 L 81.7 MCH 26.0 26.8 MCHC 32.7 32.8 RDW Std Deviation 38.3 40.7 RDW Coeff of Stefan 13.5 13.7 Plt Count 152 121 L MPV 11.2 10.6 Blood Type A Positive Antibody Screen NEGATIVE
[2023-12-03] MEDS ORDERED: bisacodyL 5 MG TABEC PO SCH (20:00)
[2023-12-04] MEDS ORDERED: bisacodyL 10 MG SUPP PR PRN (00:04)
--- NOTE | 2023-12-04 08:12 | Coding Query ---
CODING QUERY To promote full compliance with coding requirements relating to patient care, provider participation is requested in all cases of master esthetician uncertainty. Please assist us with the question(s) below: Coding Question(s): "another suture was used to approximate the rectal sphincter capsular area." indicates 3rd degree. Perineal muscle is 2nd degree. Please clarify 2nd or 3rd degree laceration. Physician's Response(s): second degree laceration Thank you Mary Del Valle Principal Diagnosis: "that condition established after study, to be chiefly responsible for occasioning the admission of the patient to the hospital for care." Co-Existing Principal Diagnosis: "when two or more diagnoses equally meet the criteria for principal diagnosis as determined by the circumstances of admission, diagnostic work up, and/or therapy provided, and the Alphabetic Index, Tabular List, or another coding guideline does not provide sequencing direction, any one of the diagnoses may be sequenced first." "When the physician has documented what appears to be a current diagnosis in the body of the record, but has not included the diagnosis in the final diagnostic statement, the physician should be asked whether the diagnosis should be added." (Source Coding [facility] 2 QTR90. p3-4) ANTHONY
== END 2023-12-03 15:45 | disposition home or self-care (01) | DRG 807 ==
LOC: OPB 09:46 → 4S1 09:47 → 4E2 12-02 04:58